=== PATIENT | male | born 1965 | race Caucasian/White ===

== ENCOUNTER 2018-01-25 10:14 | Inpatient (IN) | payer BC, OTHER ==
[2018-01-25 11:01] LABS: Hematocrit 42 % (42-52); Hemoglobin 14.2 g/dl (14.0-18.0); Mean Corpuscular HGB Conc 34 g/dl (31-36); Mean Corpuscular Hemoglobin 34 pg (27-31); Mean Corpuscular Volume 101 fL (80-94); Mean Platelet Volume 7.9 um3 (7.4-10.4); Platelet Count 121 10^3/ul (150-450); Red Blood Count 4.14 10^6/ul (4.0-5.4); Red Cell Distribution Width 15 % (10.5-15); White Blood Count 5.2 10^3/ul (3.5-10.8)
[2018-01-25 11:06] LABS: ABS Basophils 0 10^3/ul (0-0.2); ABS Eosinophils 0 10^3/ul (0-0.6); ABS Lymphocytes 0.8 10^3/ul (1.0-4.8); ABS Monocytes 0.7 10^3/ul (0-0.8); ABS Neutrophils 3.4 10^3/ul (1.5-7.7); ABS Nucleated RBC 0 10^3/ul; Eosinophil % 0.7 % (0-6); Nucleated Red Blood Cells % 0
[2018-01-25 11:09] LABS: INR 0.92 (0.77-1.02)
[2018-01-25 11:13] LABS: EGFR Non-African American 78.5 (>60)
--- NOTE | 2018-01-25 11:46 | RAD ---
HISTORY: Right facial trauma COMPARISONS: None TECHNIQUE: Multiple contiguous axial CT scans were obtained of the face without intravenous contrast, with coronal and sagittal multiplanar reformations. FINDINGS: BONES: There is pneumocephalus, with apparent dehiscence of the tegmen tympani on the left and fluid within the left mastoid air cells, suggestive of an occult, nondisplaced, left temporal bone fracture involving the mastoid air cells. The orbital rims are intact. These are metastatic arches are intact. No other fracture is noted. ORBITS: There is preorbital soft tissue swelling on the right. There is no post septal or intraconal extension. The globes are round. PARANASAL SINUSES: There is mucosal thickening of the maxillary sinuses and ethmoid air cells. There is an air-fluid level within the right maxillary sinus BRAIN AND SOFT TISSUE: As noted above, there is pneumocephalus of the left middle cranial fossa. There is associated hemorrhage of the left middle fossa as described with CT of the head OTHER: None. IMPRESSION: 1. THERE IS PNEUMOCEPHALUS OF THE LEFT MIDDLE CRANIAL FOSSA, WHICH IS LIKELY SECONDARY TO AN OCCULT NONDISPLACED LEFT TEMPORAL BONE FRACTURE INVOLVING THE MASTOID AIR CELLS. THERE IS ASSOCIATED SMALL AMOUNT OF FLUID WITHIN THE MASTOID AIR CELLS WITH DEHISCENCE OF THE TEGMEN TYMPANI ON THE LEFT. 2. THERE IS PREORBITAL SOFT TISSUE SWELLING ON THE RIGHT.
--- NOTE | 2018-01-25 11:49 | RAD ---
INDICATION: Head injury. COMPARISON: Correlation is made with a prior MRI of the brain from August 18, 2005. TECHNIQUE: Contiguous axial sections of the brain were obtained from the skull base to the vertex without contrast. FINDINGS: There is focal soft tissue swelling and possibly hematoma anterior to the right orbit. There is a small extra-axial area of hemorrhage adjacent to the left frontal lobe measuring up to 4 mm in thickness consistent with a small subdural hematoma. No mass effect is seen. In addition there is a focal ill-defined area of increased density in the posterior left temporal lobe adjacent to the mastoid air cells most consistent with a small intraparenchymal hemorrhage. In addition there is a small amount of air present adjacent to this area of hemorrhage in the subdural space suspicious for an underlying skull base fracture of the left temporal bone. No other focal abnormalities or mass effect are seen. No fracture is seen. There is mild mucosal thickening within the right maxillary sinus and within the ethmoid air cells. The mastoid air cells appear clear. The results of this exam were discussed with the referring clinician. IMPRESSION: 1. SMALL SUBDURAL HEMATOMA ADJACENT TO THE LEFT FRONTAL LOBE. 2. SMALL AREA OF PARENCHYMAL HEMORRHAGE IN THE POSTERIOR LEFT TEMPORAL LOBE. 3. PNEUMOCEPHALUS SUSPICIOUS FOR A LEFT TEMPORAL BONE SKULL BASE FRACTURE.
[2018-01-25] MEDS ORDERED: LORazepam INJ* 2 MG/ML 1 ML VIAL ONE (13:16)
[2018-01-25] MEDS ORDERED: Propofol* 200 ML ONE (13:30)
[2018-01-25] MEDS ORDERED: LORazepam INJ* 2 MG/ML 1 ML VIAL IV ONE (13:39)
[2018-01-25] MEDS ORDERED: Fosphenytoin(*) 1,000 MG in NS 0.9% 50 ML* 50 ML IVPB ONE (13:40)
[2018-01-25] MEDS ORDERED: Etomidate* 2 MG/ML 10 ML VIAL IV ONE (13:40)
[2018-01-25] MEDS ORDERED: Propofol* 500 MG/50 ML BTL IV SCH (14:00)
[2018-01-25] MEDS ORDERED: Thiamine IV* 100 MG, Folic Acid IV* 1 MG, Multiple Vitamin IV ADULT* 10 ML in NS 0.9% 1... IV ONE (14:20)
--- NOTE | 2018-01-25 14:24 | RAD ---
HISTORY: Seizure, status post intubation COMPARISONS: January 25, 2018 at 11:20 AM TECHNIQUE: Multiple contiguous axial CT scans were obtained of the head without intravenous contrast. FINDINGS: HEMORRHAGE/INFARCT: Again noted is a parenchymal hematoma of the left temporal lobe best seen on axial image 12. This measures approximately 3.2 x 2.9 cm transversely. There has been evolutionary change compared to the 11:20 AM examination, but is essentially stable in size. Again noted is a small left frontal subdural in caliber. This is stable. Elsewhere, there is no hemorrhage or acute infarct. MASSES/SHIFT: There is no mass or shift. EXTRA-AXIAL SPACES: As noted above, there is a small left frontal subdural hematoma, similar in size to the 11:20 AM examination, measuring up to 0.5 cm in depth. There is persistent pneumocephalus within the left middle cranial fossa. SULCI AND VENTRICLES: The sulci and ventricles are normal in size and position for the patient's stated age. CEREBRUM: As noted above, there is a left temporal parenchymal hematoma. BRAINSTEM: There are no focal parenchymal abnormalities. CEREBELLUM: There are no focal parenchymal abnormalities. VESSELS: The vessels are grossly normal. PARANASAL SINUSES: There is mucosal thickening of the right maxillary sinus and left maxillary sinus and ethmoid air cells on the left. There is a left mastoid effusion. ORBITS: Again noted is preorbital soft tissue swelling on the right. BONES AND SOFT TISSUE: There is no displaced fracture, though the presence of pneumocephalus within the middle cranial fossa likely indicates an occult, nondisplaced fracture through the temporal bone. OTHER: None IMPRESSION: 1. AGAIN NOTED IS A LEFT TEMPORAL PARENCHYMAL HEMATOMA, ESSENTIALLY STABLE IN SIZE COMPARED TO THE 11TH 20 A.M. EXAMINATION. 2. AGAIN NOTED IS A SMALL LEFT FRONTAL SUBDURAL HEMATOMA, ALSO STABLE. 3. AGAIN NOTED IS PNEUMOCEPHALUS WITHIN THE LEFT MIDDLE CRANIAL FOSSA, WITH A LEFT MASTOID EFFUSION, LIKELY INDICATING THE PRESENCE OF A RADIOGRAPHICALLY OCCULT FRACTURE THROUGH THE LEFT TEMPORAL BONE. 4. THERE IS PERSISTENT PREORBITAL SOFT TISSUE SWELLING ON THE RIGHT..
--- NOTE | 2018-01-25 14:33 | RAD ---
INDICATION: Trauma. COMPARISON: There are no prior studies available for comparison. TECHNIQUE: Contiguous axial sections were obtained from the skull base through the T2 vertebra. Images were reconstructed in the sagittal and coronal planes. FINDINGS: There is a cervical scoliosis convex toward the right side. There is mild retrolisthesis of C5 relative to C6 of approximately 2 mm which appears to be degenerative in origin. No fracture is seen. The patient is status post intubation. At the C2-C3 level there is posterior uncinate process spurring and hypertrophic changes within the left facet joint. No significant spinal canal narrowing is present. There is moderate neural foraminal narrowing on the left side. At the C3-C4 level there is mild posterior uncinate process spurring. No spinal canal narrowing is present. There is mild neural foraminal narrowing on the left side. At the C4-C5 level there are hypertrophic changes within the facet joints. No significant spinal canal narrowing is present. There is mild to moderate bilateral neural foraminal narrowing. At the C5-C6 level there is mild posterior uncinate process spurring and hypertrophic changes within the facet joints. There is mild spinal canal narrowing and mild to moderate bilateral neural foraminal narrowing. At the C6-C7 level there is mild posterior uncinate process spurring. No significant spinal canal narrowing is present. There is mild to moderate bilateral neural foraminal narrowing. IMPRESSION: 1. NO EVIDENCE FOR FRACTURE. 2. MODERATE CERVICAL SPONDYLOSIS.
[2018-01-25 15:24] LABS: Urine Appearance Clear; Urine Blood 2+ (Negative); Urine Color Yellow; Urine Ketones 1+ (Negative); Urine Protein 2+(100 mg/dL) (Negative); Urine Specific Gravity 1.016 (1.010-1.030); Urine Urobilinogen Negative (Negative)
[2018-01-25] MEDS ORDERED: Propofol* 100 ML IV SCH (15:41)
[2018-01-25] MEDS ORDERED: levETIRAcetam IV* 1,000 MG in NS 0.9% 100 ML* 100 ML IVPB ONE (16:30)
[2018-01-25] MEDS ORDERED: NS 0.9% 1000 ML* 1,000 ML IV ONE (16:42)
--- NOTE | 2018-01-25 16:45 | ED ---
Emery Torres Thomas, scribed for Donavon Murray MD on 01/25/18 at 1027 . Complex/Multi-Sys Presentation - HPI Summary HPI Summary: The patient is a 52 year old male who was at the store paying at the [employer] when he suddenly fell and seized. When the ambulance got there, the patient was able to say his name, say that he has a prior OR, and that he has a history of seizures but his last seizure was long ago. The patient was confused when interacting with EMS. In the ambulance, the patient had two more generalized tonic-clonic seizures that were witnessed in the ambulance. EMS gave the patient 5 mg Versed. LEVEL 5 CAVEAT: HPI limited by postictal patient - History Of Current Complaint Time Seen by Provider: 01/25/18 10:18 Hx Obtained From: EMS Hx From Patient Unobtainable Due To: Other - patient is postictal Onset/Duration: Still Present Timing: Constant Severity Initially: Moderate Location: Negative Alleviating Factor(s): Patient was given 5 mg of Versed Associated Signs And Symptoms: Positive: Other - Seizure Related History: Other - History of seizure, OR - Allergies/Home Medications Allergies/Adverse Reactions: Allergies Allergy/AdvReac Type Severity Reaction Status Date / Time No Known Allergies Allergy Verified 01/25/18 10:48 Home Medications: Home Medications NK [No Home Medications Reported] 01/25/18 [History Confirmed 01/25/18] PMH/Surg Hx/FS Hx/Imm Hx Cardiovascular History: Reports: Hx Myocardial Infarction Neurological History: Reports: Hx Seizures - Surgical History Surgery Procedure, Year, and Place: Unknown: Patient is a level 5 caveat due to postictal patient - Family History Known Family History: Positive: Unknown - Patient is a level 5 caveat due to postictal patient - Additional Comments History Additional Comments: Unknown: Patient is a level 5 caveat due to postictal patient Review of Systems Neurological: Other - Seizure All Other Systems Reviewed And Are Negative: No - Comments Additional Review of Systems Comments: LEVEL 5 CAVEAT: ROS limited by postictal patient Physical Exam - Summary Physical Exam Summary: General: He is thrashing and moves all extremities. Skin: The skin is diaphoretic. HEENT: The head is normocephalic. The pupils are 3-4 mm and reactive. He has a right supraorbital hematoma. The conjunctivae are clear and without drainage. Nares are patent and without drainage. Mouth reveals moist mucous membranes and the throat is without erythema and exudate. The external ears are intact. The ear canals are patent and without drainage. The tympanic membranes are intact. Neck: the neck is supple with full range of motion and non-tender. There are no carotid bruits. There is no neck vein distension. Respiratory: Chest is non-tender. Lungs are clear to auscultation and breath sounds are symmetrical and equal. Cardiovascular: Heart is regular rate and rhythm. There is no murmur or rub auscultated. There is no peripheral edema and pulses are symmetrical and equal. Abdomen: The abdomen is soft and non-tender. There are normal bowel sounds heard in all four quadrants and there is no organomegaly palpated. Musculoskeletal: He moves all extremities. There is good capillary refill. There is no peripheral edema or calf tenderness elicited. Neurological: He is thrashing and moves all extremities. LEVEL 5 CAVEAT: physical exam limited by postictal patient Triage Information Reviewed: Yes Vital Signs On Initial Exam: Initial Vitals Temp Pulse Resp BP Pulse Ox 97.9 F 100 28 162/95 100 01/25/18 10:20 01/25/18 10:20 01/25/18 10:20 01/25/18 10:20 01/25/18 10:20 Vital Signs Reviewed: Yes Procedures - Intubation Intubation Method: orotracheal Tube Size (cm): 8.0 Intubation Complications: no complications - Patient was intubated using etomidate and propofol Progress/Xray Impression: intubated with etomidate 20 mgs IV Diagnostics - Vital Signs Vital Signs Temp Pulse Resp BP Pulse Ox 01/25/18 15:43 84 20 99 01/25/18 15:40 80 13 93/62 98 01/25/18 15:35 80 14 98/63 98 01/25/18 15:30 82 14 97/64 96 01/25/18 15:25 81 12 90/58 95 01/25/18 15:20 82 15 90/58 96 01/25/18 15:15 86 92/63 97 01/25/18 15:10 85 98/64 94 01/25/18 15:05 85 101/65 95 01/25/18 15:00 86 100/65 95 01/25/18 14:55 87 95/59 92 04/13/18 14:50 88 91/59 98 01/25/18 14:45 91 121/64 96 01/25/18 14:40 91 110/76 95 01/25/18 14:35 91 114/78 97 01/25/18 14:30 73 117/76 94 01/25/18 14:27 14 01/25/18 14:25 92 16 79/60 95 01/25/18 14:21 95 18 86/52 94 01/25/18 14:15 113/71 01/25/18 14:13 101 17 96 01/25/18 14:10 139/89 01/25/18 13:57 103 19 96 01/25/18 13:55 108 21 129/74 97 01/25/18 13:53 108 23 146/125 97 01/25/18 13:45 117 25 167/99 98 01/25/18 13:35 119 28 181/168 99 01/25/18 13:30 110 17 183/119 97 01/25/18 13:29 78 22 163/149 98 01/25/18 13:00 83 17 134/95 95 01/25/18 12:30 74 14 134/86 96 01/25/18 12:00 86 15 138/84 100 01/25/18 11:30 85 16 128/76 100 01/25/18 11:22 120/81 01/25/18 11:02 114/69 01/25/18 11:01 100 01/25/18 11:00 91 20 100 01/25/18 10:51 94 19 100 01/25/18 10:20 97.9 F 100 28 162/95 100 - Laboratory Lab Results: Lab Results 01/25/18 01/25/18 01/25/18 Range/Units 10:44 10:44 10:44 WBC 5.2 (3.5-10.8) 10^3/ul RBC 4.14 (4.0-5.4) 10^6/ul Hgb 14.2 (14.0-18.0) g/dl Hct 42 (42-52) % MCV 101 H (80-94) fL MCH 34 H (27-31) pg MCHC 34 (31-36) g/dl RDW 15 (10.5-15) % Plt Count 121 L (150-450) 10^3/ul MPV 7.9 (7.4-10.4) um3 Neut % (Auto) 68.5 (38-83) % Lymph % (Auto) 16.0 L (25-47) % Clinch % (Auto) 14.0 H (0-7) % Eos % (Auto) 0.7 (0-6) % Baso % (Auto) 0.8 (0-2) % Absolute Neuts (auto) 3.4 (1.5-7.7) 10^3/ul Absolute Lymphs (auto) 0.8 L (1.0-4.8) 10^3/ul Absolute Monos (auto) 0.7 (0-0.8) 10^3/ul Absolute Eos (auto) 0 (0-0.6) 10^3/ul Absolute Basos (auto) 0 (0-0.2) 10^3/ul Absolute Nucleated RBC 0 10^3/ul Nucleated RBC % 0 INR (Anticoag Therapy) 0.92 (0.77-1.02) Sodium 134 L (139-145) mmol/L Potassium 3.4 L (3.5-5.0) mmol/L Chloride 96 L (101-111) mmol/L Carbon Dioxide 14 L* (22-32) mmol/L Anion Gap 24 H (2-11) mmol/L BUN 13 (6-24) mg/dL Creatinine 1.00 (0.67-1.17) mg/dL Est GFR ( Amer) 100.9 (>60) Est GFR (Non-Af Amer) 78.5 (>60) BUN/Creatinine Ratio 13.0 (8-20) Glucose 203 H (70-100) mg/dL Lactic Acid (0.5-2.0) mmol/L Calcium 9.9 (8.6-10.3) mg/dL Magnesium 2.0 (1.9-2.7) mg/dL Total Bilirubin 1.10 H (0.2-1.0) mg/dL AST 39 (13-39) U/L ALT 31 (7-52) U/L Alkaline Phosphatase 59 (34-104) U/L Total Protein 7.3 (6.4-8.9) g/dL Albumin 4.4 (3.2-5.2) g/dL Globulin 2.9 (2-4) g/dL Albumin/Globulin Ratio 1.5 (1-3) Urine Color Urine Appearance Urine pH (5-9) Ur Specific [place] (1.010-1.030) Urine Protein (Negative) Urine Ketones (Negative) Urine Blood (Negative) Urine Nitrate (Negative) Urine Bilirubin (Negative) Urine Urobilinogen (Negative) Ur Leukocyte Esterase (Negative) Urine WBC (Auto) (Absent) Urine RBC (Auto) (Absent) Ur Squamous Epith Cells (Absent) Urine Bacteria (Absent) Hyaline Casts (Absent) Urine Glucose (Negative) Urine Opiates Screen (None Detect) Ur Barbiturates Screen (None Detect) Phenytoin < 2.5 L (10-20) mcg/mL Valproic Acid < 13.0 L (50-100) mcg/mL Carbamazepine < 2.0 L (4.0-12.0) mcg/mL Ur Phencyclidine Scrn (None Detect) Ur Amphetamines Screen (None Detect) Phenobarbital < 5.0 L (17-34) mcg/mL U Benzodiazepines Scrn (None Detect) Urine Cocaine Screen (None Detect) U Cannabinoids Screen (None Detect) Serum Alcohol < 10 (<10) mg/dL 01/25/18 01/25/18 01/25/18 Range/Units 10:44 15:00 15:00 WBC (3.5-10.8) 10^3/ul RBC (4.0-5.4) 10^6/ul Hgb (14.0-18.0) g/dl Hct (42-52) % MCV (80-94) fL MCH (27-31) pg MCHC (31-36) g/dl RDW (10.5-15) % Plt Count (150-450) 10^3/ul MPV (7.4-10.4) um3 Neut % (Auto) (38-83) % Lymph % (Auto) (25-47) % Clinch % (Auto) (0-7) % Eos % (Auto) (0-6) % Baso % (Auto) (0-2) % Absolute Neuts (auto) (1.5-7.7) 10^3/ul Absolute Lymphs (auto) (1.0-4.8) 10^3/ul Absolute Monos (auto) (0-0.8) 10^3/ul Absolute Eos (auto) (0-0.6) 10^3/ul Absolute Basos (auto) (0-0.2) 10^3/ul Absolute Nucleated RBC 10^3/ul Nucleated RBC % INR (Anticoag Therapy) (0.77-1.02) Sodium (139-145) mmol/L Potassium (3.5-5.0) mmol/L Chloride (101-111) mmol/L Carbon Dioxide (22-32) mmol/L Anion Gap (2-11) mmol/L BUN (6-24) mg/dL Creatinine (0.67-1.17) mg/dL Est GFR ( Amer) (>60) Est GFR (Non-Af Amer) (>60) BUN/Creatinine Ratio (8-20) Glucose (70-100) mg/dL Lactic Acid 14.0 H* (0.5-2.0) mmol/L Calcium (8.6-10.3) mg/dL Magnesium (1.9-2.7) mg/dL Total Bilirubin (0.2-1.0) mg/dL AST (13-39) U/L ALT (7-52) U/L Alkaline Phosphatase (34-104) U/L Total Protein (6.4-8.9) g/dL Albumin (3.2-5.2) g/dL Globulin (2-4) g/dL Albumin/Globulin Ratio (1-3) Urine Color Yellow Urine Appearance Clear Urine pH 5.0 (5-9) Ur Specific [place] 1.016 (1.010-1.030) Urine Protein 2+(100 mg/dl) A (Negative) Urine Ketones 1+ A (Negative) Urine Blood 2+ A (Negative) Urine Nitrate Negative (Negative) Urine Bilirubin Negative (Negative) Urine Urobilinogen Negative (Negative) Ur Leukocyte Esterase Negative (Negative) Urine WBC (Auto) Trace(0-5/hpf) (Absent) Urine RBC (Auto) Trace(0-2/hpf) (Absent) Ur Squamous Epith Cells Present A (Absent) Urine Bacteria Absent (Absent) Hyaline Casts Present A (Absent) Urine Glucose Negative (Negative) Urine Opiates Screen None detected (None Detect) Ur Barbiturates Screen None detected (None Detect) Phenytoin (10-20) mcg/mL Valproic Acid (50-100) mcg/mL Carbamazepine (4.0-12.0) mcg/mL Ur Phencyclidine Scrn None detected (None Detect) Ur Amphetamines Screen None detected (None Detect) Phenobarbital (17-34) mcg/mL U Benzodiazepines Scrn Presumptive positive A (None Detect) Urine Cocaine Screen None detected (None Detect) U Cannabinoids Screen None detected (None Detect) Serum Alcohol (<10) mg/dL Result Diagrams: 01/25/18 10:44 01/25/18 10:44 Lab Statement: Any lab studies that have been ordered have been reviewed, and results considered in the medical decision making process. - CT CT Maxillofacial CT Interpretation: Positive (See Comments) - IMPRESSION: 1. THERE IS PNEUMOCEPHALUS OF THE LEFT MIDDLE CRANIAL FOSSA, WHICH IS LIKELY SECONDARY TO AN OCCULT NONDISPLACED LEFT TEMPORAL BONE FRACTURE INVOLVING THE MASTOID AIR CELLS. THERE IS ASSOCIATED SMALL AMOUNT OF FLUID WITHIN THE MASTOID AIR CELLS WITH DEHISCENCE OF THE TEGMEN TYMPANI ON THE LEFT. 2. THERE IS PREORBITAL SOFT TISSUE SWELLING ON THE RIGHT. Dr. Murray has reviewed this report. CT Interpretation Completed By: Radiologist CT Brain W/O 10:21 CT Interpretation: Positive (See Comments) - IMPRESSION: 1. SMALL SUBDURAL HEMATOMA ADJACENT TO THE LEFT FRONTAL LOBE. 2. SMALL AREA OF PARENCHYMAL HEMORRHAGE IN THE POSTERIOR LEFT TEMPORAL LOBE. 3. PNEUMOCEPHALUS SUSPICIOUS FOR A LEFT TEMPORAL BONE SKULL BASE FRACTURE. Dr. Murray has reviewed this report. CT Interpretation Completed By: Radiologist CT Brain W/O 13:08 CT Interpretation: Positive (See Comments) - IMPRESSION: 1. AGAIN NOTED IS A LEFT TEMPORAL PARENCHYMAL HEMATOMA, ESSENTIALLY STABLE IN SIZE COMPARED TO THE 11TH 20 A.M. EXAMINATION. 2. AGAIN NOTED IS A SMALL LEFT FRONTAL SUBDURAL HEMATOMA, ALSO STABLE. 3. AGAIN NOTED IS PNEUMOCEPHALUS WITHIN THE LEFT MIDDLE CRANIAL FOSSA, WITH A LEFT MASTOID EFFUSION, LIKELY INDICATING THE PRESENCE OF A RADIOGRAPHICALLY OCCULT FRACTURE THROUGH THE LEFT TEMPORAL BONE. 4. THERE IS PERSISTENT PREORBITAL SOFT TISSUE SWELLING ON THE RIGHT.. Dr. Murray has reviewed this report. CT Interpretation Completed By: Radiologist CT C-Spine CT Interpretation: No Acute Changes - IMPRESSION: 1. NO EVIDENCE FOR FRACTURE. 2. MODERATE CERVICAL SPONDYLOSIS. Dr. Murray has reviewed this report. CT Interpretation Completed By: Radiologist - EKG 10:31 Cardiac Rate: Tachycardia EKG Rhythm: Sinus Tachycardia - at 103 BPM EKG Interpretation: Nonspecific changes. Re-Evaluation - Re-Evaluation First Eval Comment: When the patient was being evaluated for admission by Dr. Davis, his mental status became worse and he became confused. He was sometimes speaking in word salad and at other times he had expressive aphasia. A CT was ordered, and prior to going to CT the patient had a generalized tonic-clonic seizure. 2 mg of Ativan was ordered. The patient had a second generalized tonic-clonic seizure while we were pushing the Ativan. The patient was intubated using etomidate and Propofol. Complex Multi-Symp Course/Dx Course Of Treatment: Mr. Daniel returned from the second CT slightly hypotensive and the propofol was cut back. His temporal lobe contusion looked a little worse but his subdural was unchanged. Dr. Triplett recommended continuing as planned and Dr. Estevez was consulted also. He came and saw the patient and performed an EEG whic showed no seizure activity at this time. [facility] is being [facility] at [facility]. - Diagnoses Provider Diagnoses: Status epilepticus, Intracranial hemorrhage following injury - Physician Notifications Discussed Care Of Patient With: Nilesh Instructed by Provider To: Other - Dr. Galloway, neurosurgery, agrees to consult the patient and thought that the patient should be admitted here at [facility]. Dr. Davis, hospitalist, came to evaluate the patient. Dr. Estevez, neurology, recommends Acyclovir. - Critical Care Time Critical Care Time: 30-74 min Discharge - Sign-Out/Discharge Documenting (check all that apply): Discharge - Discharge Plan Condition: Stable Disposition: ADMITTED TO [facility] Referrals: No Primary Care Phys,NOPCP [Primary Care Provider] - - Billing Disposition and Condition Condition: STABLE Disposition: HOSP-[facility] The documentation as recorded by the Emery burch Thomas accurately reflects the service I personally performed and the decisions made by me, Donavon Murray MD.
[2018-01-25] MEDS: NS 0.9% IVPB SCH (16:58)
[2018-01-25] MEDS: ACYCLOVIR IVPB SCH (16:58)
[2018-01-25] MEDS ORDERED: Ondansetron INJ* 2 MG/ML VIAL IV PRN (17:09)
--- NOTE | 2018-01-25 17:14 | HP ---
H&P (Free Text) History and Physical: CRITICAL CARE MEDICINE DATE: 01/25/18 TIME: 1615 PRIMARY CARE PROVIDER: unknown REFERRING PROVIDER: Trevor REASON/CHIEF COMPLAINT: status epilepticus HISTORY OF PRESENT ILLNESS: 52 M with little known history as he is from [place], lead to believe he is here visiting a friend, when he had acute on set seizure activity, witnessed while paying at a store counter. He had seizure like activity and fell forward striking the counter with his right sided face and then further seizure. EMS arrived and pt still confused and had 4 further episodes in route. Received 5mg versed. Per nursing he was then more talkative in ED, although probably not to baseline. Explained he had history of seizure but med free for many years. H/o [place] too. Had Head CT revealing LEFT SDH and temp hematoma/contusion. He was being admitted and had 2 more seizure events. Underwent intubation and started on propofol with repeat head CT - bleeds in evolution but not dramatically changed. loaded with dilantin. Neuro able to read EEG which I was told was nml. Nsgy ok keeping pt here with close monitoring but no interventions at this time. REVIEW OF SYSTEMS: As per HPI. PAST MEDICAL HISTORY: As per HPI. MEDICATIONS: Reviewed. unconfirmed if any. ALLERGIES: Reviewed. None. SOCIAL HISTORY: Reviewed. unclear sec to acuity. FAMILY HISTORY: Noncontributory at present. PHYSICAL EXAM: large orbital ecchymosis on right with pronounced edema. Vital Signs: Reviewed. Hr 80s. SBP ~100. vol ventilation. Neurologic: awakening as prop held for my exam. BURCH. able to protrude tongue. asked if pain and he indicated affirmative. moving ext on command but still degree of encephalopathy HEENT: pupils eq and reactive. ett in place Cardiovascular: distant, S1 S2 Respiratory: clear bl Abdomen: obese, soft nt Extremities: warm Access: piv LABS: Reviewed. IMAGING: Reviewed. MEDICATIONS: Reviewed. ASSESSMENT: 52 M Status epilepticus Left SDH Left temporal hematoma/contusion Left temporal bone fx Acute resp failure sec to above Mild hyponatremia ?h/o etoh - level neg PLAN: Neurologic: he is at least awake enough to attempt to follow commands. placed back on prop now and will need close neurochecks every hour. no surgical needs yet but nsgy will consult. Needs CT scan tonight and in am given his dynamic. No seizure at present and loading with keppra and keeping 750mg bid for now. EEG resource limited at the moment and need clinical close exams to follow. Neuro to follow up. hob 30degrees. Euthermia. close bp monitoring. propofol for now. prn low dose narcs but try to avoid. only benzos if seizure. Cardiovascular: perfusing. can utilize some ivf for now given vol distribution post seizures and intubation. NS. check trop given history and will need to sort out if on prior meds. keep sbp >100, <140 Respiratory: can maintain with vol control currently. check cxr Gastrointestinal: ogt. sup. hold on feeds at the moment. Renal/Metabolic: Na a touch low and given his vol status Na should rise with NS alone. If any neuro decline issues would consider 3%. LA post seizure should clear and check labs later to ensure. Infectious Disease: no infective burden but covered initially with acyclovir; however eeg not indicative either, and can clinically follow. no fever. benign wbc. Hematology: no anticoag we know of. asa potential given h/o mi however. reserve plt. Endocrine: bg ok. Musculoskeletal: bedrest. seizure precautions. Psych/Social: social work consult to find family and if any medical history/ meds etc Supportive and preventative care as ordered. Vaccine: unknown at this time SUP: ppi VTE prophylaxis: scds Tony catheter given critical illness, monitoring needs for accurate assessment of HEIDI and KDIGO criteria for critically ill patients and to avoid potential harms of urinary retention, skin breakdown/ulcers. Restraints: Reviewed and required presently. Disposition: ICU Code Status: Full Critical Care Time: 50min D/w Neuro and Nsgy Lovely Early DO
--- NOTE | 2018-01-25 17:29 | RAD ---
Indication: Seizure. Post intubation. Comparison: No relevant prior exams available on the [facility] for comparison. Technique: Upright AP 1508 hours Report: Endotracheal tube tip 2.5 cm above the Victoria. Minimal bilateral subsegmental atelectasis. Negative for pleural effusion or pneumothorax. Upper normal heart size. Unremarkable central pulmonary vasculature. IMPRESSION: Endotracheal tube tip 2.5 cm above the Victoria. Mild bilateral subsegmental atelectasis.
[2018-01-25] MEDS ORDERED: NS 0.9% 1000 ML* 1,000 ML IV SCH (17:45)
[2018-01-25] MEDS ORDERED: Propofol* 100 ML ONE (17:50)
[2018-01-25] MEDS: Propofol* 100 ML IV SCH ×2 (17:51→22:18)
[2018-01-25] MEDS ORDERED: Lansoprazole SOLUTAB* 30 MG G TUBE SCH (18:00)
[2018-01-25] MEDS: LORazepam INJ* 2 MG/ML 1 ML VIAL IV PUSH PRN (19:43)
[2018-01-25] MEDS: fentaNYL* 50 MCG/ML 2 ML VIAL (100 MCG VIAL) IV SLOW PU PRN (19:43)
--- NOTE | 2018-01-25 20:49 | CONS ---
CONSULTATION NOTE: DATE OF CONSULT: 01/25/18 PATIENT OF: Dr. Ruiz Murray. HISTORY OF PRESENT ILLNESS: This is a 52-year-old man, who is at the store today, paying the cashier ticket selling where he apparently stiffened first and then fell. This was generalized. The patient was able to say his name and he had had a prior heart attack and had seizures, but his last seizure was long ago. He was then somewhat confused. The patient had 2 more seizures in the ambulance and received 5 mg of Versed. The patient developed some worsening confusion when the patient was in the ER initially. At first, he was able to speak and make sense, although was not felt to be completely of clear mental status, but he developed some word salad and expressive aphasia. Repeat CT scan was ordered and prior to going to the CT scan, the patient had a generalized tonic-clonic seizure and 2 mg of Ativan was given and while the patient was getting Ativan, he had another brief tonic-clonic seizure. The patient was intubated and given propofol. He was slightly hypotensive and the propofol was cut back. The patient was able to move all extremities prior to the propofol. PAST SURGICAL HISTORY: He has known surgeries. MEDICATIONS: There are no known medications. ALLERGIES: There are no known allergies. SOCIAL HISTORY: He does not know of any substance abuse, but history is limited. He formerly lived in [place] and was a patient of Dr. Smith. Checked our chart, it must have been before records were computerized, since I do not see anything on him in Dr. Smith's computerized records. REVIEW OF SYSTEMS: Unobtainable. PHYSICAL EXAM: Temperature 97.9, pulse 84, respirations 20, blood pressure 93/ 62. He was on propofol when I saw him and intubated with significant bruise over his right eye. Pupils were small. He had no movements other than when I touched his right eye to try to open it gently, he brought up his left hand in a semi- purposeful movement. Reflexes were mute. Toes were mute. Chest: Clear. Cardiovascular: Regular rate and rhythm. Abdomen: Soft. DIAGNOSTIC STUDIES/LAB DATA: His CT scan was reviewed and he had a left temporal hematoma stable in size from earlier today, a small left frontal subdural hematoma, also he has pneumocephalus in the left middle cranial fossa, likely indicating an occult fracture of the left temporal bone. Labs include normal CBC other than MCV of 101. INR of 0.92. CMP: Sodium of 134, potassium 3.4, chloride of 14, anion gap 24, lactic acid 14, glucose 203. Total bili 1.1, otherwise intact. Toxicology was negative other than for benzodiazepines, but he received all those in the ambulance. UA was negative other than 2+ protein. His EEG showed no epileptiform potentials or major asymmetries of background. This was while he was sedated and intubated on the propofol. IMPRESSION AND PLAN: It is possible that Donavon had seizures as a part of his longstanding seizure disorder, who fell and had sustained head trauma and then had further seizures on top of brandon. It is possible, perhaps less likely that the bleed occurred first and then caused the seizures. I think that it is less likely since it looks he sustained significant trauma from his fall and now that would put him at risk for intracranial bleeding, so I think that this may have been secondary to the seizures. I am not sure why the seizures are occurring at this point. His history is limited. Given the frequency of seizures and the hemorrhage in his left temporal area, I have recommended he go on acyclovir. I have called [place] epileptologist to find out if he has the option of remote long-term monitoring today since it is unclear whether how quickly he will wake up once the propofol is removed. The propofol was given and he was intubated, so that he can get repeat CT scan. Initially, Dr. Cooper had contacted somebody and told me that he had available remote long-term monitoring. He just called me back and said that it is actually not available and I had told Dr. Early that we had availability to monitor and his decision to keep the patient here based in part on that. Dr. Murray is in the process of recontacting him to see if this changes his game plan. For now, we are going to treat him with Keppra instead of Dilantin since he has had some bradycardia. Dr. Kaur is on for Neurology should the patient stay here and I will sign the patient out to her. Thank you for sharing his case. [id number]/[facility] #: [id number] [facility] CENTERMaximino
--- NOTE | 2018-01-25 21:31 | RAD ---
Indication: Status epilepticus. Intracranial hemorrhage. Comparison: January 25, 2018 CT 1410 hours Technique: Noncontrast CT vertex of skull through foramen magnum. Report: 3.2 cm AP by 2.5 cm transverse region of hyperdense intra-axial hematoma at the LEFT temporal lobe with adjacent minimal extra-axial subdural and subarachnoid hematoma and pneumocephalus without significant interval change compared with the 14th 10 hours exam of the same date. Mild overlying sulcal effacement with underlying involutional change mitigating against more significant mass effect. Negative for midline shift or downward herniation. Patent basal cisterns. Negative for significant ventricular compression or hydrocephalus. Negative for porter matter white matter obscuration. Negative for calvarial or skull base fracture. Mucosal thickening at the visualized ethmoid and sphenoid sinuses. Clear mastoid air spaces. Persistent LEFT mastoid effusion. Significant infiltrative hematoma at the preseptal RIGHT orbit. No postseptal orbital hematoma evident. IMPRESSION: 1. No significant interval change in LEFT temporal lobe parenchymal hemorrhage and adjacent small volume of LEFT extra-axial hematoma and pneumocephalus. Only minimal associated mass effect. 2. Probable occult LEFT temporal bone fracture given the pneumocephalus and LEFT mastoid effusion. 3. No significant change in severe RIGHT preseptal orbital swelling/hematoma.
[2018-01-25] MEDS: Chlorhexidine MOUTHWASH 0.12%* 15 ML UDC TOPICAL SCH ×2 (21:44→22:23)
--- NOTE | 2018-01-25 22:15 | RAD ---
Indication: Orogastric tube placement. Comparison: 1707 hours January 25, 2018 Technique: Sitting AP chest 2110 hours Report: Endotracheal tube tip approximately 5.5 cm above the Victoria. Orogastric tube tip at the gastric fundus body junction approximating the greater curvature. Low lung volumes with mild subsegmental atelectasis. Grossly clear pleural spaces. Negative for pneumothorax. Cardiomegaly. Unremarkable central pulmonary vasculature and mediastinal contours. IMPRESSION: The endotracheal tube could be advanced approximate 1.5 cm. Orogastric tube tip at the gastric fundus body junction approximating the greater curvature.
[2018-01-25] MEDS: Lansoprazole susp Kit 3 MG/ML (30 MG = 10 ML) G TUBE SCH (22:19)
[2018-01-25] MEDS: Fosphenytoin(*) 100 MG/2 ML VIAL IV SLOW PU SCH (22:20)
[2018-01-25] MEDS: levETIRAcetam IV* 750 MG in NS 0.9% 100 ML* 100 ML IVPB SCH (22:20)
[2018-01-26] MEDS: NS 0.9% IVPB SCH ×2 (00:23→08:04)
[2018-01-26] MEDS: ACYCLOVIR IVPB SCH ×2 (00:23→08:04)
[2018-01-26] MEDS: Chlorhexidine MOUTHWASH 0.12%* 15 ML UDC TOPICAL SCH ×3 (00:23→10:25)
[2018-01-26] MEDS: Propofol* 100 ML IV SCH ×5 (00:23→09:55)
[2018-01-26] MEDS ORDERED: fentaNYL* 50 MCG/ML 2 ML VIAL (100 MCG VIAL) ONE (00:44)
--- NOTE | 2018-01-26 00:57 | CONS ---
CONSULTATION REPORT: DATE OF CONSULT: 01/25/18 HISTORY OF PRESENT ILLNESS: The patient is a 52-year-old gentleman with past medical history of seizures and IA who was referred through from [place]. The patient was reported to have a seizure when he was paying at the counter, had a fall and hit his head against the counter. The patient had several other seizure activities, was brought to the emergency room and CT scan of the brain revealed a small left subdural hematoma with left posterior temporal contusion and temporal pneumocephalus with the suspicion of a temporal fracture. The patient continued to have seizure activity, was treated with medication in the emergency room and was intubated. Repeat CT revealed evolution of the contusion without significant mass effect or midline shift. The patient was evaluated by Dr. Estevez in the emergency room and EEG was reported to be negative. The patient was admitted to ICU. No further history is available as there is no family available at this point. PAST MEDICAL HISTORY: As stated above. PAST SURGICAL HISTORY: Unknown. MEDICATIONS: Unknown. ALLERGIES: Unknown. SOCIAL HISTORY: Unknown. PHYSICAL EXAMINATION: The patient was examined in the intensive care unit. The patient is intubated and sedated with propofol. He opens his eyes to voice. He had ecchymosis on the right eye. His pupils are equal and reactive. Face symmetric. His gaze is conjugate. He follows simple commands. He moves all extremities spontaneously and he appears to be withdrawing to pain with all extremities. Deep tendon reflexes +1 bilaterally. No clonus, no Babinski. Pennington's negative. The patient is reported to have no tenderness at the cervical spine in the emergency room and is not in cervical collar. DIAGNOSTIC STUDIES/LAB DATA: The patient had a CT scan of the brain which revealed small left subdural hematoma with posterior temporal lobe contusion with pneumocephalus and possible temporal bone fracture. CT scan of the cervical spine did not reveal any evidence of fracture or subluxation. ASSESSMENT: The patient is a 52-year-old gentleman with history of seizures and myocardial infarction who was admitted to the hospital after reported seizures and a fall with CT scan findings consistent with a small left subdural hematoma and posterior temporal lobe contusion with pneumocephalus and possible temporal bone fracture. PLAN: The patient at this point is monitored closely in the intensive care unit. Repeat CT scan did not reveal any evidence of increase in the appearance of the contusion or any significant mass effect. There is no midline shift and the basal cisterns are preserved. The patient is on Keppra. We recommend frequent neuro checks. At this point, plan to apply Wakefield-J collar which we can remove if the patient is extubated and is more alert, otherwise I have requested to do an MRI of brain and the cervical spine. Monitor electrolytes. The patient received acyclovir per Dr. Estevez's recommendation because of his presentation with seizures and left temporal hemorrhage. We will recommend also thoracic and lumbar spine x-rays. We will keep him in bedrest with head top of bed 30 degrees for now. Seizure treatment per Neurology. Also consider ENT evaluation for temporal bone fracture and fluids in the mastoid cells. We will plan to repeat the CT scan of the brain in the morning. I appreciate ICU, Internal Medicine and Neurology care. Thank you for allowing us to participate in the care of this patient. Please do not hesitate to contact our office in case you have any further questions or concerns regarding the care of this patient. [id number]/[facility] #: [id number] BARRETT
--- NOTE | 2018-01-26 01:13 | EEG ---
ELECTROENCEPHALOGRAPHY: DATE OF STUDY: 01/25/18 - ROOM #ICU-2 PATIENT OF: Dr. Murray. CLINICAL PROBLEM: This is a 52-year-old man being evaluated for recurrent seizures today with some confusion as well. The patient has been intubated and put on propofol, has received Celebrex, Diprivan, Ativan, and Amidate. REPORT: With the patient intubated and on propofol, background cerebral activity consists of moderate amplitude diffuse admixed theta and alpha range frequencies without any major asymmetries of background. No epileptiform potentials are noted. There is some admixed beta range frequencies. CLINICAL IMPRESSION: This sedated EEG shows no major abnormalities. [id number]/[facility] #: [id number] [facility]
[2018-01-26] MEDS: fentaNYL* 50 MCG/ML 2 ML VIAL (100 MCG VIAL) IV SLOW PU PRN ×2 (04:19→07:52)
[2018-01-26 07:11] LABS: Hematocrit 35 % (42-52); Mean Corpuscular HGB Conc 35 g/dl (31-36); Mean Corpuscular Hemoglobin 34 pg (27-31); Mean Corpuscular Volume 99 fL (80-94); Mean Platelet Volume 7.5 um3 (7.4-10.4); Platelet Count 98 10^3/ul (150-450); Red Blood Count 3.48 10^6/ul (4.0-5.4); Red Cell Distribution Width 15 % (10.5-15)
[2018-01-26 07:13] LABS: INR 0.98 (0.77-1.02)
[2018-01-26 07:23] LABS: EGFR Non-African American 112.8 (>60)
[2018-01-26 07:38] LABS: ABS Basophils 0 10^3/ul (0-0.2); ABS Eosinophils 0 10^3/ul (0-0.6); ABS Monocytes 0.7 10^3/ul (0-0.8); ABS Neutrophils 3.2 10^3/ul (1.5-7.7); ABS Nucleated RBC 0 10^3/ul; Eosinophil % 0.7 % (0-6); Lymphocyte % 20.8 % (25-47); Nucleated Red Blood Cells % 0
[2018-01-26] MEDS: Acetaminophen ADULT LIQ* 650 MG/20.3 ML UDC PO PRN ×3 (07:53→22:56)
[2018-01-26] MEDS: Fosphenytoin(*) 100 MG/2 ML VIAL IV SLOW PU SCH ×2 (07:57→21:31)
--- NOTE | 2018-01-26 08:38 | RAD ---
INDICATION: Follow-up subdural hematoma COMPARISON: Most recent CT of the brain is dated January 25, 2018 TECHNIQUE: Contiguous axial sections of the brain were obtained from the skull base to the vertex without contrast. FINDINGS: Similar to prior CT of the brain motion artifact somewhat limits image quality. The ventricles, cisterns and sulci are within normal limits. There is no midline shift or intracranial herniation. Again seen at the posterior left temporal lobe is nodular hyperattenuating material with surrounding hypoattenuating parenchyma consistent with vasogenic edema. The area measures up to 2.7 x 4.1 cm in the axial plane, slightly increased from 2.5 x 3.2 cm on the previous CT of the brain. Although the area is larger the hyperattenuating component (i.e. the blood) appears similar. Again seen is extra-axial gas between the lateral margin of the temporal lobe and the temporal bone similar in appearance to the previous CT of the brain. At the right frontal bone there is a focus of cortical discontinuity, asymmetric from the contralateral side (axial image 17 of 36). The degree of mastoid air cell effusion on the left is similar in appearance to the previous CT of the brain. At the right junction between the clivus and mastoid air cells there is asymmetric cortical discontinuity (axial image 7 of 36). Again seen is moderate mucosal thickening of the right worse than left maxillary sinuses. There is mild mucosal thickening of the sphenoid sinuses as well as the bilateral ethmoid air cells. IMPRESSION: 1. Similar to the prior CT of the brain there is stable parenchymal bleed at the posterior left temporal lobe but with an enlarging area of surrounding vasogenic edema now measuring 2.7 x 4.1 cm in the axial plane increased from 2.5 x 3.2 cm. There is no CT evidence of midline shift or intracranial herniation. 2. The left-sided mastoid air cell effusion as well as extra-axial gas between the temporal lobe and the temporal bone are similar in appearance. 3. There appears to be cortical discontinuity at the right frontal bone as well as the junction of the right clivus and temporal bone which could be a depressed skull fracture and temporal bone fracture, respectively. Please correlate to external signs of trauma as well as the mechanism of injury.
[2018-01-26] MEDS: LORazepam INJ* 2 MG/ML 1 ML VIAL IV PUSH PRN (09:01)
[2018-01-26] MEDS ORDERED: Potassium Chloride LIQUID* 20 MEQ PACKET PO ONE (09:45)
[2018-01-26] MEDS ORDERED: Potassium Chloride LIQUID* 20 MEQ PACKET ONE (09:46)
[2018-01-26] MEDS: levETIRAcetam IV* 750 MG in NS 0.9% 100 ML* 100 ML IVPB SCH ×2 (09:49→22:08)
[2018-01-26] MEDS ORDERED: fentaNYL* 50 MCG/ML 2 ML VIAL (100 MCG VIAL) IV SLOW PU ONE (10:02)
[2018-01-26] MEDS: Lansoprazole susp Kit 3 MG/ML (30 MG = 10 ML) G TUBE SCH (10:26)
--- NOTE | 2018-01-26 10:45 | PN ---
Progress Note - Progress Note Date of Service: 01/26/18 Note: CRITICAL CARE MEDICINE DATE: 01/26/18 TIME: 1005 SUBJECTIVE: Patient seen and examined. PHYSICAL EXAM: orbital ecchymosis on right better Vital Signs: Reviewed. Hr 80s. SBP >100. cpap ventilation. Neurologic: awakening as prop held, but a little slow and agitated. fent given. following commands. HEENT: pupils eq and reactive. ett in place Cardiovascular: distant, S1 S2 Respiratory: clear bl Abdomen: obese, soft nt Extremities: warm Access: piv LABS: Reviewed. IMAGING: Reviewed. MEDICATIONS: Reviewed. ASSESSMENT: 52 M Status epilepticus Left SDH Left temporal hematoma/contusion Left temporal bone fx Acute resp failure sec to above Mild hyponatremia ?h/o etoh PLAN: Neurologic: CTs stable. nsgy and neuro have evaluated. No acute interventions. follow up aeds. seemingly all traumatic, but seizure trigger etiology? appreciate consulted f/u. will look to clear c-spine later post liberation. f/ u pain control needs. Cardiovascular: perfusing. bp ok. can be oiff fluids now. keep sbp >100, <140 Respiratory: cpap and liberate today. obs Gastrointestinal: f/u for po. Renal/Metabolic: Na at least not low. can give lasix if needing to drive up more but otherwise not an ailment at present. Infectious Disease: no infective burden. no abx. Hematology: counts ok. f/u with pt regarding any asa use etc Endocrine: bg ok. Musculoskeletal: oob later. pt. seizure precautions. Psych/Social: social work f/u Supportive and preventative care as ordered. Vaccine: unknown at this time SUP: ppi VTE prophylaxis: scds Tony catheter given critical illness, monitoring needs for accurate assessment of HEIDI and KDIGO criteria for critically ill patients and to avoid potential harms of urinary retention, skin breakdown/ulcers. Restraints: off today Disposition: ICU Code Status: Full Critical Care Time: 35min Lovely Early DO
--- NOTE | 2018-01-26 10:51 | PN ---
FOLLOWUP NOTE: DATE OF SERVICE: 01/26/18 HISTORY OF PRESENT ILLNESS: Mr. Daniel is a 52-year-old gentleman with reported history of seizures and myocardial infarction, on unknown antiepileptic medications, who was admitted after experiencing a seizure with head trauma. He was brought into hospital and continued to have seizures in ambulance and in the ER. In the ER he developed expressive aphasia, followed by further seizures. CT showed a subdural hematoma in the left frontal lobe and parenchymal hemorrhage in left temporal lobe, which appears to have progressed this morning. There is also question of a left temporal skull bone fracture. He was seen by Dr. Estevez in the emergency room, admitted by Dr. Early in the ICU and consulted by Dr. Dillard in Neurosurgery In regards to seizures, he was provided levetiracetam at 1000 mg and continued on 750 IV q.12 hours. He was provided fosphenytoin 1000 mg load followed by 150 mg IV b.i.d. starting this morning. He has received benzodiazepines and he was intubated and sedated on propofol. EEG was obtained yesterday after sedation and no ongoing epileptiform activity was noted. It is unclear what seizure medication he is on at baseline and in the emergency room he had levels drawn of phenytoin, valproic, carbamazepine, phenobarbital and the levels were reported below the lower limit. Pending are lamotrigine, levetiracetam and zonisamide levels. His tox screen was presumed positive for benzodiazepines. Dr. Estevez did start the patient on acyclovir playing devil's advocate of a bleed and seizure secondary to infection, as opposed to trauma from discussion. This morning, his propofol was lifted, and he was examined by Dr. Dillard who I spoke to and was leaving the ICU as I was coming in, and he was able to follow commands in all 4 limbs and was signaling that he wanted to be extubated. My exam was confounded by Ativan that was given after Dr. Dillard ' exam and just restarting propofol. Despite that, he was able to move all 4 limbs. PHYSICAL EXAMINATION: On examination this morning, his most recent temperature was 99.7, heart rate 99, respiratory rate 15, saturation 94%, blood pressure 128/95. He had a regular cardiac rhythm. His lungs are clear to auscultation. There was no peripheral edema. He had bruising over his right eye and he kept this closed. He did briefly open his left eye for me and I was briefly able to open both eyes, but then he resisted making it difficult to examine. Of note, he did have bowel sounds and his abdomen was soft and no response was made to suggest tenderness. I was unable to evaluate pupil response given patient keeping his eyes closed. He did briefly follow commands and move his left eye from left to right. His facial expression appeared symmetric, albeit he is intubated. His tone was good in all of his extremities. Each limb, he was able to move independently with very good antigravity strength in his arms with further purposeful movement in his lower extremities. He was able to wiggle toes on both sides and do withdrawal. His reflexes were 2+ and symmetric with flexor response of the toes. Further coordination, sensory and gait exam could not be performed. LABORATORY DATA/IMAGING STUDIES: His most recent CBC showed a normal white count with hemoglobin of 12, hematocrit 35 and platelets of 98. His sodium was 138, potassium 3.0 and the remainder of his electrolytes were normal. His lactic acid was elevated at 14 and came down to normal last evening. His calcium slightly low at 8.3. Liver function tests reported within normal limits. His urinalysis showed 2+ protein, 1+ ketone, 2+ blood and his tox screen showed presumed positive benzodiazepines. No detectable phenytoin, valproic, carbamazepine or phenobarbital and serum alcohol less than 10. All CTs were reviewed showing the evolving left temporal bleed and the left frontal subdural and possible left temporal skull bone fracture as well as consultations by Dr. Dillard, Dr. Estevez, and Dr. Early were reviewed and ER report by Dr. Murray. IMPRESSION: Mr. Daniel is a 52-year-old gentleman with a history of epilepsy , myocardial infarction, admitted after seizure with head trauma followed by repeat seizures requiring intubation, sedation on propofol with treatment with Keppra (levetiracetam) and fosphenytoin. We do not know what seizure medications he is on at baseline. The patient is currently intubated. Neurosurgery indicated they are comfortable with extubation. We await Dr. Early's input. His exam at this point is limited; however, he is clearly moving all limbs to command and no seizure activity has been noted. He did just receive Ativan and propofol prior to my examination. At this point, I would check a Dilantin level, albeit noting that it is non- trough in anticipation of extubation and cessation of propofol. For now, we will continue on current doses of levetiracetam and fosphenytoin. Hopefully, we will be able to get further information from the patient after extubation. In regards to the question of treatment with acyclovir, I think it is less likely there is indication for this. We will wait for extubation, but I will be discussing this with Dr. Early. TIME SPENT: Over 45 minutes was spent in care, reviewing records, discussing case with Neurosurgery, examination, and coordination of care. I will be re- rounding today and discussing case further with Dr. Early. As far as EEG is concerned, this morning he is able to move all limbs and it is not indicated. Further EEG will depend on clinical course. [id number]/[facility] #: [id number] MTDD
[2018-01-26] MEDS ORDERED: NS 0.9% 1000 ML* 1,000 ML IV SCH (11:01)
--- NOTE | 2018-01-26 11:46 | PN ---
Progress Note - Progress Note Date of Service: 01/26/18 Note: CRITICAL CARE MEDICINE DATE: 01/26/18 TIME: 1140 Pt tolerating over hour post liberation. Much clearer. Knows where he is, day, why here etc. 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 No complaint on neck pain. Collar off. No pain to palpation, active nor passive motion, witg full rom. Collar discontinued. Disposition: ICU Code Status: Full Critical Care Time: 5min Lovely Early DO
[2018-01-26] MEDS ORDERED: Dexmedetomidine* 200 MCG in NS 0.9% 50 ML* 48 ML IVPB SCH ×4 (12:00)
--- NOTE | 2018-01-26 13:32 | PN ---
Progress Note - Progress Note Date of Service: 01/26/18 Note: CRITICAL CARE MEDICINE DATE: 01/26/18 TIME: 1330 D/w ENT. No acute needs. Can follow up with ENT for outpt audiogram. Critical Care Time: 5min Lovely Early DO
[2018-01-26] MEDS ORDERED: Potassium Chlor TAB* 20 MEQ TAB.ER PO ONE (19:00)
--- NOTE | 2018-01-26 21:42 | PN ---
Progress Note - Progress Note Date of Service: 01/26/18 SOAP: Subjective: []No events ON. No reported SZ. Patient was seen earlier today before and after extubation. C spine cleared by Dr Chahal earlier. 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 Does not recall exact details of SZ. Objective: []VSS, Afebrile. Mild skin contusion rt frontal area. No laceration. No foreign object to inspection or palpation. Rt periorbital echymosis improving. AAOx3 DAVID, CN II-XII grossly intact. Motor 5/5 all extremities, No pronator drift Sensory grossly intact to light touch No tenderness to palpation C/T/L spine. Free ROM in cervical spine. Assessment: []52 yom SZ, reported fall, Rt frontal fracture, Left SDH, Left temporal contusion Plan: []Monitor VS, Neurochecks Monotor electrolytes, labs CT brain: evolution of Left temporal contusion, Stable Lt SDH, PNC, Rt frontal fracture, possible lt tentorial SDH. No acute NS intervention at this point. T/L spine XRs Appreciate ICU, Neurology care, ENT input. CT head in am Mitesh Dillard MD
--- NOTE | 2018-01-26 22:03 | RAD ---
INDICATION: Follow-up subdural hematoma COMPARISON: Most recent CT of the brain is dated January 26, 2018 TECHNIQUE: Contiguous axial sections of the brain were obtained from the skull base to the vertex without contrast. FINDINGS: Again seen is nodular hyperattenuating material in the posterior left temporal lobe consistent with intraparenchymal hemorrhage. There is surrounding vasogenic edema measuring 3.0 x 4.4 cm in the axial plane, slightly larger than was measured on the examination acquired at 0632 hours. There is stable extra-axial gas along the lateral dependent margin of the left temporal lobe. There is a foci of gas in the right anterior horn ventricle. There is no midline shift or appearance of intracranial herniation. Mildly hyperattenuating material along the left tentorium cerebelli (axial image 12) could represent a small amount of extra-axial blood tracking along the tentorium. Again seen is a depressed skull fracture involving the right frontal bone. There is again questionable cortical discontinuity between the right temporal lobe and clivus. Partial left mastoid air cell effusion is unchanged. Paranasal sinus mucosal disease is again noted. IMPRESSION: 1. The vasogenic edema in the dependent posterior right temporal lobe measures 3.0 x 4.4 cm in the axial plane, slightly increased from 2.7 x 4.1 cm measured on the CT examination acquired the same date at 0632 hours. The intraparenchymal hemorrhage has not changed significantly. 2. Likely there is a small amount of blood tracking along the left tentorium cerebelli. 3. Depressed skull fracture at the right frontal bone and questionable nondisplaced fracture between the right temporal bone and clivus. 4. Partial left mastoid air cell effusion unchanged from the previous CT examination.
[2018-01-27 05:26] LABS: EGFR Non-African American 138.8 (>60)
[2018-01-27 06:02] LABS: Hematocrit 34 % (42-52); Hemoglobin 12.1 g/dl (14.0-18.0); Mean Corpuscular HGB Conc 35 g/dl (31-36); Mean Corpuscular Hemoglobin 35 pg (27-31); Mean Corpuscular Volume 99 fL (80-94); Platelet Count 101 10^3/ul (150-450); Red Blood Count 3.45 10^6/ul (4.0-5.4); Red Cell Distribution Width 15 % (10.5-15)
--- NOTE | 2018-01-27 07:09 | PN ---
Progress Note - Progress Note Date of Service: 01/26/18 Note: Nursing reporting new anisocoria previously documented as equal. Upon arrival R pupil is 6mm, L 3mm w/ both reactive. Mental status intact. Neurologically non- focal. Tiera Early MD critical care apprised, advised repeat CT brain which revealed no significant change. Hernandez Dillard MD neurosurgery was informed of the finding and stable CT. He requested a CTA of the head in the AM to evaluate possibility of pseudo-aneurysm formation.
[2018-01-27] MEDS ORDERED: Iohexol 350* (CONTRAST) 500 ML MDV IV ONE (08:31)
--- NOTE | 2018-01-27 08:56 | RAD ---
INDICATION: Back pain after falling during a seizure COMPARISON: None. TECHNIQUE: 3 views of the lumbar spine and 2 views of the thoracic spine were obtained. FINDINGS: Degenerative changes of the thoracic spine includes mild loss of intervertebral disc height at the mid-level. The vertebral bodies are anatomically aligned in the AP and lateral projection. On the sagittal view image of the lumbar spine there is loss of height of the superior endplate anteriorly of the L1 vertebral body. The posterior margin of the vertebral body is intact and there is no retropulsion of fragments. Degenerative changes seen at the lumbar spine include loss of intervertebral disc height and anterior marginal osteophyte formation. IMPRESSION: 1. Questionable cortical discontinuity along the anterior margin of the L1 vertebral body and vertebral body height loss could be an acute compression deformity depending on the patient's clinical presentation. There are no prior images available for comparison to comment on chronicity. There is no retropulsion of fragments posteriorly into the thecal sac. 2. Additional chronic appearing degenerative changes described above.
--- NOTE | 2018-01-27 09:07 | RAD ---
INDICATION: Subdural hematoma with new anisocoria. COMPARISON: Multiple recent brain CTs, most recently CT of the brain dated January 26, 2018 acquired at 2200 hours TECHNIQUE: A CT angiogram of the head only was performed with 6 cc of Omnipaque 350. Contiguous axial sections were obtained from the base of the skull through the vertex. Images were reconstructed in the sagittal, coronal planes and in a 3-D volume rendered format. Imaging findings: The internal carotid, anterior and middle cerebral arteries appear are patent without high grade stenosis or occlusion. The superior portion and intracranial portion of the right vertebral artery is diminutive relative to the left. The visualized portions of the vertebral arteries are adequately patent. The basilar and posterior cerebral arteries appear patent without high grade stenosis or occlusion. The posterior communicating arteries are diminutive bilaterally. No focal luminal filling defect, aneurysm or vascular malformation is seen. NON-ARTERIAL FINDINGS: There is a depressed skull fracture of the right frontal bone as well as questionable fracture between the right temporal bone and clivus (axial image 18 of 74). Again seen is nodular parenchymal hemorrhage at the posterior right temporal lobe with surrounding vasogenic edema. The vasogenic edema measures approximately 2.8 x 4.5 cm in the axial plane not significantly changed since the most recent CT of the brain. There is no active extravasation identified. Paranasal sinus mucosal thickening is again noted. IMPRESSION: 1. Normal CT angiogram of the brain. 2. Dramatic cranial and intracranial findings as described above. The area of vasogenic edema surrounding the left posterior temporal lobe parenchymal hemorrhage is similar in size compared to the most recent noncontrast CT the brain acquired January 26, 2018 at 2200 hours.
[2018-01-27] MEDS ORDERED: Magnesium Sulfate 2 GM IV* 2 GM/50 ML BAG IVPB ONE (09:49)
[2018-01-27] MEDS: Fosphenytoin(*) 100 MG/2 ML VIAL IV SLOW PU SCH (09:53)
[2018-01-27] MEDS: levETIRAcetam IV* 750 MG in NS 0.9% 100 ML* 100 ML IVPB SCH (09:53)
[2018-01-27] MEDS: Potassium Chlor TAB* 20 MEQ TAB.ER PO SCH ×3 (10:51→21:05)
--- NOTE | 2018-01-27 10:51 | PN ---
Progress Note - Progress Note Date of Service: 01/27/18 Note: CRITICAL CARE MEDICINE DATE: 01/27/18 TIME: 1000 SUBJECTIVE: Patient seen and examined. PHYSICAL EXAM: orbital ecchymosis better Vital Signs: Reviewed. stable Neurologic: communicating well. following commands. HEENT: pupils eq and reactive for me but pupillometry could probably show difference Cardiovascular: distant, S1 S2 Respiratory: clear bl Abdomen: obese, soft nt Extremities: warm Access: piv LABS: Reviewed. IMAGING: Reviewed. MEDICATIONS: Reviewed. ASSESSMENT: 52 M Fall Status epilepticus Left SDH Left temporal hematoma/contusion Left temporal bone fx Acute resp failure sec to above - resolved PLAN: doing fine. feels better. on dilantin and keppra and states previously on keppra 750mg bid. Neuro considering leveling on both today and then perhaps keepra 1000mg bid alone if eeg stable tomorrow. oob. po. pt. f/u msk pains. oupt optho and ent evals warranted. neuro and nsgy f/u as well Supportive and preventative care as ordered. SUP: po VTE prophylaxis: scds, oob Disposition: ICU today and floor tomorrow Code Status: Full Critical Care Time: 35min FAbad Early DO
--- NOTE | 2018-01-27 13:50 | PN ---
Progress Note - Progress Note Date of Service: 01/27/18 SOAP: Subjective: [] No events ON except reported transient anisocoria with right pupil dilation that resolved spontaneously. No reported SZ. 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 No complains of diplopia, no neck or back pain. No neck stiffness. Objective: []VSS, Afebrile. Mild skin contusion rt frontal area. Rt periorbital echymosis is improving. AAOx3 DAVID, CN II-XII grossly intact. Motor 5/5 all extremities, No pronator drift Sensory grossly intact to light touch No tenderness to palpation C/T/L spine. Free ROM in cervical spine. Assessment: []52 yom SZ, reported fall, Rt frontal fracture, Left SDH, Left temporal contusion Plan: [] Monitor VS, Neurochecks Monotor electrolytes, labs CTA brain: evolution of Left temporal contusion, Stable Lt SDH, PNC, Rt frontal fracture, possible lt tentorial SDH. No aneurysm. No acute NS intervention at this point. T/L spine XRs revealed possible anterior compression fracture L1. Consider CT T/ L spine. Appreciate ICU, Neurology care, ENT Opth input. Mitesh Dillard MD
[2018-01-27] MEDS: Phenytoin CAP(*) 100 MG CAP.ER PO SCH ×2 (15:08→21:06)
[2018-01-27] MEDS: Acetaminophen ADULT LIQ* 650 MG/20.3 ML UDC PO PRN (21:04)
[2018-01-27] MEDS: levETIRAcetam TAB* 500 MG PO SCH (21:05)
--- NOTE | 2018-01-27 22:50 | PN ---
FOLLOWUP NOTE: DATE OF SERVICE: 01/27/18 HISTORY OF PRESENT ILLNESS: Mr. Daniel is a 52-year-old gentleman admitted to the ICU after head trauma and seizures. He is now extubated and continues to improve from yesterday evening. Pupil asymmetry was noted during the night and CTA was obtained, which showed no evidence of aneurysm and stability of the bleed. He has had no seizures. It was confirmed last night that he had been on Keppra in the past 750 mg b.i.d. that was stopped 2 years ago. He had tolerated it well. He was on no other seizure medication. At this point, he is on both levetiracetam 750 mg IV q.12 hours and fosphenytoin 150 mg IV b.i.d. PHYSICAL EXAMINATION: On examination, Mr. Daniel's blood pressure was 163/ 103. His pulse was 98, respiratory rate was 13, saturation was 97% and most recent temperature was 99.2. He had a regular cardiac rhythm. His lungs were clear to auscultation. There was ecchymosis around the right eye with swollen eyelid leading to some ptosis. He described soreness of joints on the right hand side; however, no clear movement abnormality was noted on exam. He had pulses which were intact in the dorsalis pedis and posterior tibialis and no peripheral edema. 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 His pupils were asymmetric to right from 4 mm to 2 mm and left 2 mm to 1 mm. He had full extraocular movements with no diplopia. Full grijalva to confrontation. His facial expression, sensation and hearing were equal. Palate was upgoing. Tongue was midline. Sternocleidomastoid and trapezius were 5/5 in strength. There was normal bulk and tone. No pronator drift. He gave good strength in his upper and lower extremities, albeit there was some soreness in the right shoulder, hip and knee when doing testing. He had normal [id number]-nd-bqyj and glzt-jg-aieu movements. There was no asymmetry to pinprick, cold or light touch. Vibration sensation was decreased at the large toes by approximately 15 seconds, ankles by 5 seconds. His reflexes were 2+ and symmetric with the exception of the ankles that were 1+. Toes were flexor response. Gait was not tested at this time due to clinical status. His CBC today showed normal white count, hemoglobin and hematocrit were 12.1 and 34, and platelets were 101,000. His metabolic panel showed sodium of 138, his potassium was low at 2.9, BUN 4, creatinine 0.61 with an elevated BUN/ creatinine ratio at 6.6. His glucose was 104 and magnesium was 1.7. Remainder of the metabolic panel was normal. His phenytoin level yesterday was 5.7 and he had a CTA as noted above, which was reviewed directly. He also had thoracic and lumbosacral x-rays and there was a question of L1 compression deformity. Please see report for details. IMPRESSION: Mr. Daniel is a 52-year-old gentleman with known history of epilepsy off Keppra who had seizures and head trauma resulting in admission with left temporal bleed and frontal subdural and repeat seizures. He was initially sedated, intubated, placed on Keppra, Dilantin, propofol as well as given acyclovir. He has shown improvement and is extubated. I am pleased to see how well he is doing. In regards to seizures, we will check an EEG tomorrow. We will continue on the current medication regimen. If there is no seizure discharges, then I would simplify to monotherapy by increasing Keppra dose 1000 mg b.i.d. and discontinuing Dilantin. As long as he is swallowing, he can be switched over to p.o. medications. There is some pupil asymmetry with response to light. He was a little bit slower in counting fingers in all grijalva on the right. I was able to see his fundi and I could not see any blood. It is possible that some of the asymmetry could be secondary to trauma. There is no evidence of aneurysm. He does admit that there has been some more difficulty seeing out of his right eye in the past. It is unclear what his baseline is. Unfortunately, yesterday I could not get his eyes open to be able to examine his pupil, so it is hard to tell if this is a new change versus something that has been seen since admission. His pupils were noted to be small in the ER in the setting of intubation and sedation. Dr. Estevez will be taking over care in the morning. He had originally met Mr. Daniel in the emergency room. Over 40 minutes was spent in direct patient care and case was discussed with nurse and Dr. Early in the ICU. All questions were answered. [id number]/[facility] #: [id number] BARRETT
[2018-01-28 05:39] LABS: Hematocrit 36 % (42-52); Hemoglobin 12.8 g/dl (14.0-18.0); Mean Corpuscular HGB Conc 35 g/dl (31-36); Mean Corpuscular Hemoglobin 34 pg (27-31); Mean Corpuscular Volume 98 fL (80-94); Mean Platelet Volume 7.1 um3 (7.4-10.4); Platelet Count 135 10^3/ul (150-450); Red Blood Count 3.71 10^6/ul (4.0-5.4); Red Cell Distribution Width 14 % (10.5-15); White Blood Count 4.9 10^3/ul (3.5-10.8)
[2018-01-28] MEDS: Acetaminophen ADULT LIQ* 650 MG/20.3 ML UDC PO PRN ×2 (05:51→14:57)
[2018-01-28 05:58] LABS: EGFR Non-African American 126.7 (>60)
[2018-01-28] MEDS: levETIRAcetam TAB* 500 MG PO SCH ×2 (07:56→20:12)
[2018-01-28] MEDS: Phenytoin CAP(*) 100 MG CAP.ER PO SCH ×3 (07:57→20:12)
[2018-01-28] MEDS ORDERED: Magnesium Sulfate IV* 3 GM in NS 0.9% 100 ML* 100 ML IVPB ONE (09:00)
[2018-01-28] MEDS: Magnesium Oxide TAB* 400 MG PO SCH (09:33)
--- NOTE | 2018-01-28 12:14 | RAD ---
Indication: Fracture of the thoracic spine. CT of the thoracic spine was obtained in the axial plane. Sagittal and coronal reconstructed images were obtained. Mild compression of the L1 vertebra is noted age of which is undetermined. Please see CT of the lumbar spine report. The remainder of the thoracic spine is unremarkable. Spinal canal appears to be intact. There is a right pleural effusion in the right hemithorax. No fracture is identified. IMPRESSION: Mild compression of L1 vertebra is incompletely visualized. No fracture of the remainder of the thoracic spine is noted.
--- NOTE | 2018-01-28 12:17 | RAD ---
Indication: Evaluate for fracture. CT of the lumbar spine was obtained in the axial plane. Sagittal and coronal reconstructed images were obtained. There is mild compression of the L1 vertebra. The margins appear well-corticated. This is less than 25% compression. No evidence of paravertebral soft tissue swelling is noted. No evidence of disc protrusion or retropulsed fragment is noted. Findings consistent with a chronic fracture of the L1 vertebra. The L2, L3, L4 and L5 vertebra demonstrates no fracture. The sacrum and sacroiliac joints are intact. IMPRESSION: Less than 25% compression of L1.
--- NOTE | 2018-01-28 16:30 | PN ---
Subjective Date of Service: 01/28/18 Interval History: pt feels well. did well with PT.Denies headache, no seizure activity Objective Active Medications: Acetaminophen (Tylenol Adult Liq*) 650 mg PO Q6H PRN PRN Reason: FEVER/PAIN Last Admin: 01/28/18 14:57 Dose: 650 mg Levetiracetam (Keppra Tab*) 750 mg PO BID [facility] Last Admin: 01/28/18 07:56 Dose: 750 mg Magnesium Oxide (Magox 400 Tab*) 800 mg PO DAILY [facility] Last Admin: 01/28/18 09:33 Dose: 800 mg Ondansetron HCl (Zofran Inj*) 4 mg IV Q6H PRN PRN Reason: NAUSEA Phenytoin Sodium (Dilantin Cap(*)) 100 mg PO TID [facility] Last Admin: 01/28/18 14:37 Dose: 100 mg Vital Signs - 8 hr 01/28/18 01/28/18 01/28/18 08:30 08:33 08:45 Temperature Pulse Rate 83 94 91 Respiratory 20 16 16 Rate Blood Pressure 119/87 (mmHg) O2 Sat by Pulse 95 94 94 Oximetry 01/28/18 01/28/18 01/28/18 09:00 09:01 09:15 Temperature Pulse Rate 93 91 104 Respiratory 18 17 14 Rate Blood Pressure 130/94 (mmHg) O2 Sat by Pulse 94 96 97 Oximetry 01/28/18 01/28/18 01/28/18 09:30 09:31 09:45 Temperature Pulse Rate 100 101 101 Respiratory 19 17 11 Rate Blood Pressure 139/98 (mmHg) O2 Sat by Pulse 89 96 95 Oximetry 01/28/18 01/28/18 01/28/18 10:00 10:15 10:50 Temperature Pulse Rate 104 95 Respiratory 15 19 13 Rate Blood Pressure 132/87 (mmHg) O2 Sat by Pulse 96 97 Oximetry 01/28/18 01/28/18 11:00 15:56 Temperature 98.3 F Pulse Rate 104 Respiratory 13 18 Rate Blood Pressure 131/89 134/98 (mmHg) O2 Sat by Pulse 98 Oximetry Oxygen Devices in Use Now: None Appearance: 52 yo F in NAD, AAOx3 Eyes: No Scleral Icterus, PERRLA Ears/Nose/Mouth/Throat: NL Teeth, Lips, Gums, Mucous Membranes Moist Neck: NL Appearance and Movements; NL JVP, Trachea Midline Respiratory: Symmetrical Chest Expansion and Respiratory Effort, Clear to Auscultation Cardiovascular: NL Sounds; No Murmurs; No JVD, RRR Abdominal: NL Sounds; No Tenderness; No Distention, No Hepatosplenomegaly Lymphatic: No Cervical Adenopathy Extremities: No Edema, No Clubbing, Cyanosis Skin: No Nodules or Sclerosis, - - b/l orbital ecchymoses Neurological: Alert and Oriented x 3, NL Muscle Strength and Tone Result Diagrams: 01/28/18 05:30 01/28/18 05:30 Additional Lab and Data: Lab Results 01/25/18 01/25/18 01/25/18 Range/Units 10:44 10:44 10:44 WBC 5.2 (3.5-10.8) 10^3/ul RBC 4.14 (4.0-5.4) 10^6/ul Hgb 14.2 (14.0-18.0) g/dl Hct 42 (42-52) % MCV 101 H (80-94) fL MCH 34 H (27-31) pg MCHC 34 (31-36) g/dl RDW 15 (10.5-15) % Plt Count 121 L (150-450) 10^3/ul MPV 7.9 (7.4-10.4) um3 Neut % (Auto) 68.5 (38-83) % Lymph % (Auto) 16.0 L (25-47) % Meigs % (Auto) 14.0 H (0-7) % Eos % (Auto) 0.7 (0-6) % Baso % (Auto) 0.8 (0-2) % Absolute Neuts (auto) 3.4 (1.5-7.7) 10^3/ul Absolute Lymphs (auto) 0.8 L (1.0-4.8) 10^3/ul Absolute Monos (auto) 0.7 (0-0.8) 10^3/ul Absolute Eos (auto) 0 (0-0.6) 10^3/ul Absolute Basos (auto) 0 (0-0.2) 10^3/ul Absolute Nucleated RBC 0 10^3/ul Nucleated RBC % 0 INR (Anticoag Therapy) 0.92 (0.77-1.02) Sodium 134 L (139-145) mmol/L Potassium 3.4 L (3.5-5.0) mmol/L Chloride 96 L (101-111) mmol/L Carbon Dioxide 14 L* (22-32) mmol/L Anion Gap 24 H (2-11) mmol/L BUN 13 (6-24) mg/dL Creatinine 1.00 (0.67-1.17) mg/dL Est GFR ( Amer) 100.9 (>60) Est GFR (Non-Af Amer) 78.5 (>60) BUN/Creatinine Ratio 13.0 (8-20) Glucose 203 H (70-100) mg/dL Lactic Acid (0.5-2.0) mmol/L Calcium 9.9 (8.6-10.3) mg/dL Magnesium 2.0 (1.9-2.7) mg/dL Total Bilirubin 1.10 H (0.2-1.0) mg/dL AST 39 (13-39) U/L ALT 31 (7-52) U/L Alkaline Phosphatase 59 (34-104) U/L Total Protein 7.3 (6.4-8.9) g/dL Albumin 4.4 (3.2-5.2) g/dL Globulin 2.9 (2-4) g/dL Albumin/Globulin Ratio 1.5 (1-3) Urine Color Urine Appearance Urine pH (5-9) Ur Specific [place] (1.010-1.030) Urine Protein (Negative) Urine Ketones (Negative) Urine Blood (Negative) Urine Nitrate (Negative) Urine Bilirubin (Negative) Urine Urobilinogen (Negative) Ur Leukocyte Esterase (Negative) Urine WBC (Auto) (Absent) Urine RBC (Auto) (Absent) Ur Squamous Epith Cells (Absent) Urine Bacteria (Absent) Hyaline Casts (Absent) Urine Glucose (Negative) Urine Opiates Screen (None Detect) Ur Barbiturates Screen (None Detect) Phenytoin < 2.5 L (10-20) mcg/mL Valproic Acid < 13.0 L (50-100) mcg/mL Carbamazepine < 2.0 L (4.0-12.0) mcg/mL Ur Phencyclidine Scrn (None Detect) Ur Amphetamines Screen (None Detect) Phenobarbital < 5.0 L (17-34) mcg/mL U Benzodiazepines Scrn (None Detect) Urine Cocaine Screen (None Detect) U Cannabinoids Screen (None Detect) Serum Alcohol < 10 (<10) mg/dL 01/25/18 01/25/18 01/25/18 Range/Units 10:44 15:00 15:00 WBC (3.5-10.8) 10^3/ul RBC (4.0-5.4) 10^6/ul Hgb (14.0-18.0) g/dl Hct (42-52) % MCV (80-94) fL MCH (27-31) pg MCHC (31-36) g/dl RDW (10.5-15) % Plt Count (150-450) 10^3/ul MPV (7.4-10.4) um3 Neut % (Auto) (38-83) % Lymph % (Auto) (25-47) % Meigs % (Auto) (0-7) % Eos % (Auto) (0-6) % Baso % (Auto) (0-2) % Absolute Neuts (auto) (1.5-7.7) 10^3/ul Absolute Lymphs (auto) (1.0-4.8) 10^3/ul Absolute Monos (auto) (0-0.8) 10^3/ul Absolute Eos (auto) (0-0.6) 10^3/ul Absolute Basos (auto) (0-0.2) 10^3/ul Absolute Nucleated RBC 10^3/ul Nucleated RBC % INR (Anticoag Therapy) (0.77-1.02) Sodium (139-145) mmol/L Potassium (3.5-5.0) mmol/L Chloride (101-111) mmol/L Carbon Dioxide (22-32) mmol/L Anion Gap (2-11) mmol/L BUN (6-24) mg/dL Creatinine (0.67-1.17) mg/dL Est GFR ( Amer) (>60) Est GFR (Non-Af Amer) (>60) BUN/Creatinine Ratio (8-20) Glucose (70-100) mg/dL Lactic Acid 14.0 H* (0.5-2.0) mmol/L Calcium (8.6-10.3) mg/dL Magnesium (1.9-2.7) mg/dL Total Bilirubin (0.2-1.0) mg/dL AST (13-39) U/L ALT (7-52) U/L Alkaline Phosphatase (34-104) U/L Total Protein (6.4-8.9) g/dL Albumin (3.2-5.2) g/dL Globulin (2-4) g/dL Albumin/Globulin Ratio (1-3) Urine Color Yellow Urine Appearance Clear Urine pH 5.0 (5-9) Ur Specific [place] 1.016 (1.010-1.030) Urine Protein 2+(100 mg/dl) A (Negative) Urine Ketones 1+ A (Negative) Urine Blood 2+ A (Negative) Urine Nitrate Negative (Negative) Urine Bilirubin Negative (Negative) Urine Urobilinogen Negative (Negative) Ur Leukocyte Esterase Negative (Negative) Urine WBC (Auto) Trace(0-5/hpf) (Absent) Urine RBC (Auto) Trace(0-2/hpf) (Absent) Ur Squamous Epith Cells Present A (Absent) Urine Bacteria Absent (Absent) Hyaline Casts Present A (Absent) Urine Glucose Negative (Negative) Urine Opiates Screen None detected (None Detect) Ur Barbiturates Screen None detected (None Detect) Phenytoin (10-20) mcg/mL Valproic Acid (50-100) mcg/mL Carbamazepine (4.0-12.0) mcg/mL Ur Phencyclidine Scrn None detected (None Detect) Ur Amphetamines Screen None detected (None Detect) Phenobarbital (17-34) mcg/mL U Benzodiazepines Scrn Presumptive positive A (None Detect) Urine Cocaine Screen None detected (None Detect) U Cannabinoids Screen None detected (None Detect) Serum Alcohol (<10) mg/dL Microbiology and Other Data: Microbiology 01/25/18 18:15 Nasal Screen MRSA (PCR)([facility]) - Final Nasal Mrsa Not Detected Assess/Plan/Problems-Billing Assessment: 52 yo M with h/o seizure disorder (on Keppra 1000 mg BID at home) and HTN presents after a seizure and hitting head at store's counter resulting in temporal lobe hematoma/contusion, temporal bone fracture, SDH and respiratory failure requiring intubation, now extubated transferred out of ICU. - Patient Problems (1) Head trauma Comment: resulted in SDH and temporal lobe contusion/hematoma, temporal bone fx -conservative tx Appreciate neurosurgery's consult. Cont PT (2) Seizures Comment: On Dilantin and Keppra being adjusted by neurology (3) Hypomagnesemia Comment: replacing IV and PO (4) Lumbar compression fracture Comment: mild at 25%, pt c/o no back pain , ? old? less likley acute fx (5) DVT prophylaxis Comment: ambulatory, no anticoagulation due to SDH Status and Disposition: inpatient, may be able to go home tomorrow
--- NOTE | 2018-01-29 02:22 | PN ---
NEUROLOGICAL FOLLOWUP NOTE: DATE OF VISIT/DICTATION: 01/28/18 PATIENT OF: Dr. Early. HISTORY: I got further history from the patient that he had been seen by a neurologist on [place] for 2 seizures he had in 2014 and was on Keppra for apparently less than a year. He then came off and he has been seizure free on no medicines since he had no aura or syncopal warning before his event at _ in [facility]. Since Sunday, he has had no further seizures. He has had some anisocoria with right pupillary dilatation, which has fluctuated. MEDICATIONS: Include: 1. Keppra 750 mg b.i.d. 2. Dilantin 100 mg t.i.d. 3. Mag-ox. 4. Zofran p.r.n. ALLERGIES: He has no allergies. He has no complaints. He has no clear nasal discharge. PHYSICAL EXAMINATION: Vital Signs: Temperature 99, pulse 95, respirations 13, blood pressure 131/89. He is alert and oriented with normal speech and comprehension. Cranial nerves II through XII are intact. Right pupil is 3 mm but reactive, left pupil 2 mm. Chest: Clear. Cardiovascular: Regular rate and rhythm. Abdomen: Soft, with positive bowel sounds. There is no pronator drift. Fine motor was intact both hands. Strength was intact. Reflexes were symmetric. DIAGNOSTIC STUDIES: His EEG was normal. His lumbar and thoracic CT scan showed L1, less than 25% compression fracture. His CBC was normal. Today, he had normal CMP other than sodium of 135. IMPRESSION: I think Mr. Daniel needs to be on long-term anticonvulsants. I discussed this with him. Keppra monotherapy would be a reasonable choice and he tolerated that well without any depression he notes. I also discussed with his pneumocephalus and his contusions, he needs to be on the lookout for clear nasal discharge because he could have a potential CSF leak. He has nothing like that at this point. We discussed that he cannot drive now and that he will need neurological followup see him in a month and he will need levels before that. [id number]/[facility] #: [id number] [facility]
--- NOTE | 2018-01-29 03:37 | EEG ---
ELECTROENCEPHALOGRAPHY: DATE OF STUDY: 01/28/18 - ROOM #446 PATIENT OF: Dr. Kaur. HISTORY: This is a 52-year-old man being evaluated for seizures and head trauma and has a left temporal and left frontal subdural. MEDICATIONS: Include: 1. Dilantin. 2. Keppra. 3. Zofran. INTERPRETATION: With the patient awake, background cerebral activity consists of moderate amplitude posterior dominant 9 to 10 Hz rhythm, which attenuates with eye opening and reappears with eye closure. The patient never falls asleep. IMPRESSION: This awake EEG is within normal limits. [id number]/[facility] #: [id number] [facility]
[2018-01-29 05:42] LABS: Hematocrit 35 % (42-52); Hemoglobin 12.4 g/dl (14.0-18.0); Mean Corpuscular HGB Conc 35 g/dl (31-36); Mean Corpuscular Hemoglobin 35 pg (27-31); Mean Corpuscular Volume 99 fL (80-94); Mean Platelet Volume 6.8 um3 (7.4-10.4); Platelet Count 168 10^3/ul (150-450); Red Blood Count 3.57 10^6/ul (4.0-5.4); Red Cell Distribution Width 14 % (10.5-15); White Blood Count 4.3 10^3/ul (3.5-10.8)
[2018-01-29 06:09] LABS: EGFR Non-African American 120.4 (>60)
[2018-01-29] MEDS: levETIRAcetam TAB* 500 MG PO SCH ×2 (09:03→20:18)
[2018-01-29] MEDS: Magnesium Oxide TAB* 400 MG PO SCH (09:03)
[2018-01-29] MEDS: Phenytoin CAP(*) 100 MG CAP.ER PO SCH (09:03)
[2018-01-29] MEDS ORDERED: Magnesium Sulfate IV* 3 GM in NS 0.9% 100 ML* 100 ML IVPB ONE (09:30)
--- NOTE | 2018-01-29 15:18 | PN ---
Subjective Date of Service: 01/29/18 Interval History: Pt did well with PT, but still very impulsive and rather poor historian and poor recall. Confirmed pt's meds from [facility] pharmacy: Keppra 750 BID Atenolol 50 mg QD HCTZ 25 mg QD Norvasc 5 mg QD Objective Active Medications: Acetaminophen (Tylenol Adult Liq*) 650 mg PO Q6H PRN PRN Reason: FEVER/PAIN Last Admin: 01/28/18 14:57 Dose: 650 mg Amlodipine Besylate (Norvasc Tab*) 5 mg PO DAILY [facility] Atenolol (Tenormin Tab*) 50 mg PO DAILY [facility] Hydrochlorothiazide (Hydrodiuril Tab*) 25 mg PO DAILY [facility] Levetiracetam (Keppra Tab*) 1,000 mg PO BID [facility] Magnesium Oxide (Magox 400 Tab*) 800 mg PO DAILY [facility] Last Admin: 01/29/18 09:03 Dose: 800 mg Ondansetron HCl (Zofran Inj*) 4 mg IV Q6H PRN PRN Reason: NAUSEA Vital Signs - 8 hr 01/29/18 01/29/18 01/29/18 07:17 07:25 08:00 Temperature 98.6 F Pulse Rate 92 Respiratory 20 16 Rate Blood Pressure 165/101 164/92 (mmHg) O2 Sat by Pulse 98 Oximetry 01/29/18 11:04 Temperature 98.1 F Pulse Rate 95 Respiratory 20 Rate Blood Pressure 154/96 (mmHg) O2 Sat by Pulse 97 Oximetry Oxygen Devices in Use Now: None Appearance: 52 yo m in NAD, AAOx3 Eyes: No Scleral Icterus, - - r pupil slightly larger then left Ears/Nose/Mouth/Throat: NL Teeth, Lips, Gums, Mucous Membranes Moist Neck: NL Appearance and Movements; NL JVP, Trachea Midline Respiratory: Symmetrical Chest Expansion and Respiratory Effort, Clear to Auscultation Cardiovascular: NL Sounds; No Murmurs; No JVD, RRR Abdominal: NL Sounds; No Tenderness; No Distention Lymphatic: No Cervical Adenopathy Extremities: No Edema, No Clubbing, Cyanosis Skin: No Nodules or Sclerosis, - - r orbital ecchymosis, R arm ecchymosis Neurological: Alert and Oriented x 3, NL Muscle Strength and Tone Result Diagrams: 01/29/18 05:23 01/29/18 05:24 Additional Lab and Data: Lab Results 01/25/18 01/25/18 01/25/18 Range/Units 10:44 10:44 10:44 WBC 5.2 (3.5-10.8) 10^3/ul RBC 4.14 (4.0-5.4) 10^6/ul Hgb 14.2 (14.0-18.0) g/dl Hct 42 (42-52) % MCV 101 H (80-94) fL MCH 34 H (27-31) pg MCHC 34 (31-36) g/dl RDW 15 (10.5-15) % Plt Count 121 L (150-450) 10^3/ul MPV 7.9 (7.4-10.4) um3 Neut % (Auto) 68.5 (38-83) % Lymph % (Auto) 16.0 L (25-47) % Charles % (Auto) 14.0 H (0-7) % Eos % (Auto) 0.7 (0-6) % Baso % (Auto) 0.8 (0-2) % Absolute Neuts (auto) 3.4 (1.5-7.7) 10^3/ul Absolute Lymphs (auto) 0.8 L (1.0-4.8) 10^3/ul Absolute Monos (auto) 0.7 (0-0.8) 10^3/ul Absolute Eos (auto) 0 (0-0.6) 10^3/ul Absolute Basos (auto) 0 (0-0.2) 10^3/ul Absolute Nucleated RBC 0 10^3/ul Nucleated RBC % 0 INR (Anticoag Therapy) 0.92 (0.77-1.02) Sodium 134 L (139-145) mmol/L Potassium 3.4 L (3.5-5.0) mmol/L Chloride 96 L (101-111) mmol/L Carbon Dioxide 14 L* (22-32) mmol/L Anion Gap 24 H (2-11) mmol/L BUN 13 (6-24) mg/dL Creatinine 1.00 (0.67-1.17) mg/dL Est GFR ( Amer) 100.9 (>60) Est GFR (Non-Af Amer) 78.5 (>60) BUN/Creatinine Ratio 13.0 (8-20) Glucose 203 H (70-100) mg/dL Lactic Acid (0.5-2.0) mmol/L Calcium 9.9 (8.6-10.3) mg/dL Magnesium 2.0 (1.9-2.7) mg/dL Total Bilirubin 1.10 H (0.2-1.0) mg/dL AST 39 (13-39) U/L ALT 31 (7-52) U/L Alkaline Phosphatase 59 (34-104) U/L Total Protein 7.3 (6.4-8.9) g/dL Albumin 4.4 (3.2-5.2) g/dL Globulin 2.9 (2-4) g/dL Albumin/Globulin Ratio 1.5 (1-3) Urine Color Urine Appearance Urine pH (5-9) Ur Specific [place] (1.010-1.030) Urine Protein (Negative) Urine Ketones (Negative) Urine Blood (Negative) Urine Nitrate (Negative) Urine Bilirubin (Negative) Urine Urobilinogen (Negative) Ur Leukocyte Esterase (Negative) Urine WBC (Auto) (Absent) Urine RBC (Auto) (Absent) Ur Squamous Epith Cells (Absent) Urine Bacteria (Absent) Hyaline Casts (Absent) Urine Glucose (Negative) Urine Opiates Screen (None Detect) Ur Barbiturates Screen (None Detect) Phenytoin < 2.5 L (10-20) mcg/mL Valproic Acid < 13.0 L (50-100) mcg/mL Carbamazepine < 2.0 L (4.0-12.0) mcg/mL Ur Phencyclidine Scrn (None Detect) Ur Amphetamines Screen (None Detect) Phenobarbital < 5.0 L (17-34) mcg/mL U Benzodiazepines Scrn (None Detect) Urine Cocaine Screen (None Detect) U Cannabinoids Screen (None Detect) Serum Alcohol < 10 (<10) mg/dL 01/25/18 01/25/18 01/25/18 Range/Units 10:44 15:00 15:00 WBC (3.5-10.8) 10^3/ul RBC (4.0-5.4) 10^6/ul Hgb (14.0-18.0) g/dl Hct (42-52) % MCV (80-94) fL MCH (27-31) pg MCHC (31-36) g/dl RDW (10.5-15) % Plt Count (150-450) 10^3/ul MPV (7.4-10.4) um3 Neut % (Auto) (38-83) % Lymph % (Auto) (25-47) % Charles % (Auto) (0-7) % Eos % (Auto) (0-6) % Baso % (Auto) (0-2) % Absolute Neuts (auto) (1.5-7.7) 10^3/ul Absolute Lymphs (auto) (1.0-4.8) 10^3/ul Absolute Monos (auto) (0-0.8) 10^3/ul Absolute Eos (auto) (0-0.6) 10^3/ul Absolute Basos (auto) (0-0.2) 10^3/ul Absolute Nucleated RBC 10^3/ul Nucleated RBC % INR (Anticoag Therapy) (0.77-1.02) Sodium (139-145) mmol/L Potassium (3.5-5.0) mmol/L Chloride (101-111) mmol/L Carbon Dioxide (22-32) mmol/L Anion Gap (2-11) mmol/L BUN (6-24) mg/dL Creatinine (0.67-1.17) mg/dL Est GFR ( Amer) (>60) Est GFR (Non-Af Amer) (>60) BUN/Creatinine Ratio (8-20) Glucose (70-100) mg/dL Lactic Acid 14.0 H* (0.5-2.0) mmol/L Calcium (8.6-10.3) mg/dL Magnesium (1.9-2.7) mg/dL Total Bilirubin (0.2-1.0) mg/dL AST (13-39) U/L ALT (7-52) U/L Alkaline Phosphatase (34-104) U/L Total Protein (6.4-8.9) g/dL Albumin (3.2-5.2) g/dL Globulin (2-4) g/dL Albumin/Globulin Ratio (1-3) Urine Color Yellow Urine Appearance Clear Urine pH 5.0 (5-9) Ur Specific [place] 1.016 (1.010-1.030) Urine Protein 2+(100 mg/dl) A (Negative) Urine Ketones 1+ A (Negative) Urine Blood 2+ A (Negative) Urine Nitrate Negative (Negative) Urine Bilirubin Negative (Negative) Urine Urobilinogen Negative (Negative) Ur Leukocyte Esterase Negative (Negative) Urine WBC (Auto) Trace(0-5/hpf) (Absent) Urine RBC (Auto) Trace(0-2/hpf) (Absent) Ur Squamous Epith Cells Present A (Absent) Urine Bacteria Absent (Absent) Hyaline Casts Present A (Absent) Urine Glucose Negative (Negative) Urine Opiates Screen None detected (None Detect) Ur Barbiturates Screen None detected (None Detect) Phenytoin (10-20) mcg/mL Valproic Acid (50-100) mcg/mL Carbamazepine (4.0-12.0) mcg/mL Ur Phencyclidine Scrn None detected (None Detect) Ur Amphetamines Screen None detected (None Detect) Phenobarbital (17-34) mcg/mL U Benzodiazepines Scrn Presumptive positive A (None Detect) Urine Cocaine Screen None detected (None Detect) U Cannabinoids Screen None detected (None Detect) Serum Alcohol (<10) mg/dL Microbiology and Other Data: Microbiology 01/25/18 18:15 Nasal Screen MRSA (PCR)([facility]) - Final Nasal Mrsa Not Detected Assess/Plan/Problems-Billing Assessment: 52 yo M with h/o seizure disorder (on Keppra 1000 mg BID at home) and HTN presents after a seizure and hitting head at store's counter resulting in temporal lobe hematoma/contusion, temporal bone fracture, SDH and respiratory failure requiring intubation, now extubated transferred out of ICU. - Patient Problems (1) Head trauma Comment: resulted in SDH and temporal lobe contusion/hematoma, temporal bone fx -conservative tx Appreciate neurosurgery's consult. Cont PT Cognitive problems and impulse control problems noted. Asked speech therapy to do cognitive eval (2) Seizures Comment: on Keppra 750 mg BID at home on the day of admission. D/w DR. Estevez,will increase Keppra to 1000 BID, d/c dilantin (3) Hypomagnesemia Comment: replacing IV and PO (4) Lumbar compression fracture Comment: mild at 25%, pt c/o no back pain , ? old? less likely acute fx (5) HTN (hypertension) Comment: restarted home Atenolol/HCTZ/Norvasc (6) DVT prophylaxis Comment: ambulatory, no anticoagulation due to SDH Status and Disposition: inpatient, d/c tomorrow
[2018-01-29] MEDS: amLODIPine TAB* 5 MG PO SCH (16:02)
[2018-01-29] MEDS: Hydrochlorothiazide TAB* 25 MG PO SCH (16:02)
--- NOTE | 2018-01-29 18:20 | PN ---
Progress Note - Progress Note Date of Service: 01/29/18 SOAP: Subjective: [] No events ON. No reported SZ. No complains of diplopia, no neck or back pain. No neck stiffness. Objective: []VSS, Afebrile. Rt periorbital echymosis significantly improving. AAOx3 DAVID, CN II-XII grossly intact. Motor 5/5 all extremities, No pronator drift Sensory grossly intact to light touch No tenderness to palpation C/T/L spine. Free ROM in cervical spine. Assessment: []52 yom SZ, reported fall, Rt frontal fracture, Left SDH, Left temporal contusion Plan: [] Monitor VS, Neurochecks No acute NS intervention at this point. CT T/L spine chronic anterior compression fracture L1 Appreciate ICU, Neurology care, ENT Opth input. Follow up in office in 2-[address] head. Mitesh Dillard MD
--- NOTE | 2018-01-29 22:11 | PN ---
NEUROLOGICAL FOLLOWUP NOTE: DATE OF VISIT: 01/29/18 PATIENT OF: Dr. Boone. 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 He has had no further seizures. He has no headache, no staring spells. He is walking more and feeling more like himself. He notes that he is on Keppra 750 twice a day at home and Dr. Boone has apparently called the pharmacy and this is what his dose has been. He has negative review of symptoms at this point. PHYSICAL EXAMINATION: Temperature 98.1, pulse 95, respirations 20, blood pressure 154/96. He is alert and oriented with normal speech and comprehension. Cranial nerves II through XII are intact. No pronator drift. Gait is normal. Strength is 5/5. Chest: Clear. Cardiovascular: Regular rate and rhythm. Abdomen: Soft with positive bowel sounds. LABORATORY DATA: White count is benign, hematocrit is 35. Electrolytes were normal. IMPRESSION AND PLAN: Donavon has no further seizures. We increasing his Keppra dose to 1000 mg twice a day and he will be off of Dilantin. He is not going to drive for now. I will see him back in the office in 5 or 6 weeks after he gets a Keppra level. There has been some concern that he is in a problem with alcohol. We have given him banana bag with thiamine in the ER. He needs to get a primary care doctor, but I will be glad to be his neurologist as an outpatient. Thank you for sharing his case. [id number]/[facility] #: [id number] [facility]ENTER[facility]
[2018-01-30 08:59] VITALS: BP 150/105
[2018-01-30] MEDS: amLODIPine TAB* 5 MG PO SCH (09:00)
[2018-01-30] MEDS: Magnesium Oxide TAB* 400 MG PO SCH (09:00)
[2018-01-30] MEDS: Hydrochlorothiazide TAB* 25 MG PO SCH (09:00)
[2018-01-30] MEDS ORDERED: Atenolol TAB* 50 MG PO SCH (09:00)
[2018-01-30] MEDS: levETIRAcetam TAB* 500 MG PO SCH (09:00)
--- NOTE | 2018-01-30 17:50 | DS ---
CC: Dr. Delaney; Dr. Estevez * DISCHARGE SUMMARY: DATE OF ADMISSION: 01/25/18 DATE OF DISCHARGE: 01/30/18 PRIMARY CARE PROVIDER: Dr. Delaney. DISPOSITION: The patient is being discharged home. DISCHARGE DIAGNOSES: 1. Status epilepticus in the patient with history of seizures in the past. 2. Head trauma with temporal bone fracture, subdural hematoma, right temporal lobe intracranial hematoma and brain contusion as well as subdural hematoma. 3. L1 compression fracture at 25% of questionable activity. 4. Hypomagnesemia. PAST MEDICAL HISTORY: 1. History of seizure disorder. 2. Hypertension. MEDICATIONS AT DISCHARGE: Include: 1. Keppra 1000 mg b.i.d. 2. Atenolol 50 mg daily. 3. Hydrochlorothiazide 25 mg daily. 4. Norvasc 5 mg daily. 5. Magnesium oxide 800 mg daily for a total of 10 days and stop. FOLLOWUP: At discharge, patient recommended to follow up with Dr. Delaney in a scheduled appointment of 02/17/[address] Estevez wishes for the patient to be seen in his office in approximately 4 to 6 weeks after discharge. LABORATORY DATA AND STUDIES PERFORMED DURING THE HOSPITAL STAY: Include: On 01/29/18, sodium of 138, potassium 3.6, chloride 103, carbon dioxide 27, BUN 8, creatinine 0.69. On 01/29/18, white blood cell count of 4.3, hemoglobin of 12.4, hematocrit of 35 , MCV of 99, and platelets of 168. EEG obtained on 01/28/18, impression: "With the patient awake, background cerebral activity consistent with moderate amplitude posterior dominant rhythm, a 9 to 10 Hz rhythm, which attenuates with eye opening and reappears with eye closure. The patient never falls asleep." Lumbar spine CT obtained on 01/28/18, impression: "Less than 25% compression fracture of L1." Thoracic spine CT showed no thoracic spine fracture noted. Head CT obtained on 01/27/18, impression: "Normal CT angiogram of the brain. Traumatic cranial and intracranial findings as described above. The area of vasogenic edema surrounding the posterior temporal lobe, parenchymal hemorrhage is similar in size compared to a noncontrast CT of the brain from January 2014." Portable chest x-ray obtained on admission, on 01/25/18, impression: "Endotracheal tube 2.5 cm above the marsha. Mild bilateral subsegmental atelectasis." Brain CT obtained on 01/25/18, impression: "Small subdural hematoma adjacent to the left frontal lobe. Small area of parenchymal hemorrhage of the posterior left temporal lobe. Normocephalic, suspicious for a left temporal bone skull base fracture." Cervical spine CT, impression: "No evidence of fracture. Moderate cervical spondylosis." Musculofascial CT obtained on 01/25/18, there is pneumocephalus of the left middle cranial fossa, which is likely secondary to "a nondisplaced left temporal bone fracture involving the mastoid air cells. There is associated small amount of fluid within the mastoid air cells with dehiscence of tegmen tympani on the left. There is periorbital soft tissue swelling on the right." CONSULTATIONS DURING THE HOSPITAL STAY: Included: 1. Dr. Dillard from Neurosurgery. 2. Dr. Estevez from Neurology. 3. Dr. Early, the fulfillment coordinator. HOSPITALIZATION COURSE: Donavon Daniel is a 52-year-old male, [employer] art teacher, with history of hypertension and seizure disorder, who had been on Keppra 750 mg b.i.d. and on 01/25/18 while buying something at a store had a seizure, fell, hit his head and presented with head trauma to the emergency room. Initially, fairly lucent, later on became more confused and had several subsequent seizures and it was decided for the patient to be intubated and sedated. Dr. Dillard saw the patient in consultation in regards to his head trauma. The patient was noted to have parenchymal hemorrhage in the temporal lobe as well as contusion on that side and subdural hematoma. He also had temporal bone fracture. L1 compression fracture was not determined if it was acute or not at that point. The patient gradually was able to be extubated. He was placed initially on Keppra and Dilantin. Later on, his dose of Keppra was increased and his Dilantin was discontinued once it became apparent what medications he was taking at home. Throughout his hospital stay, he was very impulsive and Physical Therapy and Occupational Therapy saw the patient for evaluation. Physical therapy discharged the patient a day prior to his official discharge from the hospital. Occupational Therapy due to patient's impulsiveness suggested cognitive evaluation performed by the Speech Therapy. The cognitive evaluation went very well. The patient had no impairment noted. At discharge, the patient is recommended not to drive. He is recommended to follow up with Dr. Estevez and his primary care provider, who is a new primary care provider for him as above mentioned. Please note the patient just moved from [facility] to [facility] in October 2017 and he was not able to establish primary care provider yet, which was performed by our service at discharge. The patient was noted to have some hypomagnesemia, which had needed to be replaced with multiple IV magnesium doses. He is going to be prescribed magnesium supplement at discharge. PHYSICAL EXAMINATION: At the time of discharge, blood pressure of 150/91, heart rate of 95 and regular, respiratory rate 20, oxygen saturation 99% on room air, temperature 98.5. General: This is a very pleasant 52-year-old male who is in no acute distress. Alert, awake, and oriented x3. HEENT: Head: With head trauma noted with ecchymosis overlying the right side of the patient' s orbit, the patient's face. Eyes: Extraocular muscles are intact. Pupils are uneven with the right pupil being slightly larger than the left, both are reactive to light and accommodation. Oropharynx clear. Mucosa moist. Neck: Supple. No JVD. No bruits bilaterally. Cardiovascular: Regular rate and rhythm. No murmur. Respiratory: Clear to auscultation bilaterally. Abdomen: Soft, nontender. Bowel sounds are present in all 4 quadrants. Extremities: There is no edema. Pulses are +2 bilaterally. No clubbing or cyanosis. Skin: On evaluation of the skin, large ecchymotic area overlying the right side of face as well as the right chest and right upper extremity. Psychiatric Evaluation: Oriented x3 with no evidence of anxiety or depression. Please note that this is a short summary of the patient's hospitalization. Please refer to further medical records for details. TIME SPENT: Approximately 50 minutes were spent on the patient's discharge. [id number]/[facility] #: [id number] MTDD
== END 2018-01-30 14:40 | disposition home or self-care (01) | DRG 55 ==
LOC: ED 10:14 → ICU 16:38 → MEDTELE 01-28 15:46
PROVIDERS: ADMIT Internal Medicine Critical Care Medicine; ATTEND Internal Medicine
PROC: 0BH17EZ Insertion of Endotracheal Airway into Trachea, Via Natural or Artificial Opening (ICD-10-PCS; principal; 2018-01-25)
PROC: 5A1935Z Respiratory Ventilation, Less than 24 Consecutive Hours (ICD-10-PCS; 2018-01-25)
PROC: 4A00X4Z Measurement of Central Nervous Electrical Activity, External Approach (ICD-10-PCS; 2018-01-28)
DX: S06.5X0A Traumatic subdural hemorrhage without loss of consciousness, initial encounter (principal); J96.00 Acute respiratory failure, unspecified whether with hypoxia or hypercapnia; S06.369A Traumatic hemorrhage of cerebrum, unspecified, with loss of consciousness of unspecified duration, initial encounter; G93.6 Cerebral edema; E87.1 Hypo-osmolality and hyponatremia; R47.01 Aphasia; M48.56XA Collapsed vertebra, not elsewhere classified, lumbar region, initial encounter for fracture; G40.901 Epilepsy, unspecified, not intractable, with status epilepticus; W18.30XA Fall on same level, unspecified, initial encounter; S02.19XA Other fracture of base of skull, initial encounter for closed fracture; G40.401 Other generalized epilepsy and epileptic syndromes, not intractable, with status epilepticus; I10 Essential (primary) hypertension; S06.2X0A Diffuse traumatic brain injury without loss of consciousness, initial encounter; S05.11XA Contusion of eyeball and orbital tissues, right eye, initial encounter; H57.02 Anisocoria; E83.42 Hypomagnesemia; G93.89 Other specified disorders of brain; M47.812 Spondylosis without myelopathy or radiculopathy, cervical region; I25.2 Old myocardial infarction; Y92.512 Supermarket, store or market as the place of occurrence of the external cause
CPT/HCPCS: 36415; 70450; 70486; 70496; 71045; 72070; 72100; 72125; 72128; 72131; 80048; 80053; 80156; 80164; 80175; 80177; 80184; 80185; 80203; 80307; 80320; 81003; 81015; 83605; 83735; 84100; 84484; 85025; 85027; 85060; 85610; 87086; 87641; 93005; 94002; 94003; 95816; 95822; 99285; A9270-GY; G0480; G8978-GP-CH; G8978-GP-CI; G8979-GP-CH; G8980-GP-CH; G8987-GO-CH; G8988-GO-CH; G8989-GO-CH; J0133; J2060; J2704; J3010; J3411; J3475; Q2009; Q9967

== ENCOUNTER 2018-08-23 08:14 | Emergency (ER) | payer OTHER ==
[2018-08-23] MEDS ORDERED: EPINEPHrine SYR 0.1MG/ML* SYRINGE ONE ×2 (08:16→08:20)
[2018-08-23] MEDS ORDERED: Sodium Bicarbonate 8.4%* 50 ML SYRINGE ONE (08:17)
[2018-08-23] MEDS ORDERED: Calcium CHLORIDE 10% SYRINGE* 1 GM/10 ML ONE (08:18)
[2018-08-23 08:58] VITALS: BP 0/0
--- NOTE | 2018-08-23 09:07 | ED ---
HPI Cardiac - HPI Summary HPI Summary: Patient is a 53 y/o M arriving via [facility] ambulance for cardiac arrest. Patient was reported to be heard snoring in a hallway and found down and unresponsive at [facility] at 0710, EMS was called. ABC alert called at [phone], EMS arrived at 0813, Dr. Jackson in room to evaluate patient immediately upon arrival. EMS reports that patient was given 6 epi, 1 narcan, 1 bicarp, 800cc NS TECHNICIAN'S HELPER. IO placed to RLE. Patient was never shocked as a shockable rhythm was never recorded. CPR was done for 30 minutes, EMS reports that patient was asystole the entire time and no trauma was observed. Accu-check showed BG of 337. Endotracheal tube was attempted twice, combitube was placed. In room, patient was given epi at 0816 and 0820 as well as calcium chloride and sodium bicarbonate. Patient was pronounced at 0822. Afterwards, review of medical records showed PMHx of low magnesium, DVT, seizures. [facility] state that it was reported to them that patient possibly had an alcohol problem. Level 5 caveat, patient unresponsive. - History of Current Complaint Stated Complaint: ABC ALERT Hx Obtained From: EMS, Medical Records Hx From Patient Unobtainable Due To: Other - level 5 caveat, unresponsive Onset/Duration: Started Minutes Ago - found down at 0710, Still Present Timing: Constant, Lasting Minutes - found down at 0710 Initial Severity: Severe Current Severity: Severe Associated Signs and Symptoms: Positive: Other: - cardiac arrest - Additional Pertinent History Primary Care Physician: [id number] - Allergy/Home Medications Allergies/Adverse Reactions: Allergies Allergy/AdvReac Type Severity Reaction Status Date / Time lisinopril Allergy Anaphylatic Verified 01/29/18 16:03 Shock PMH/Surg Hx/FS Hx/Imm Hx Endocrine/Hematology History: Denies: Hx Diabetes Cardiovascular History: Reports: Hx Myocardial Infarction Denies: Hx Hypertension History: Denies: Hx Renal Disease Sensory History: Comment Only: Hx Contacts or Glasses - unable to confirm, Hx Hearing Aid - unable to confirm Opthamlomology History: Comment Only: Hx Contacts or Glasses - unable to confirm Neurological History: Reports: Hx Seizures - Surgical History Surgery Procedure, Year, and Place: Unknown: Patient is a level 5 caveat due to postictal patient Infectious Disease History: Denies: Traveled Outside the [place] in Last 30 Days - Family History Known Family History: Positive: Unknown - Patient is a level 5 caveat - Social History Alcohol Use: unable to confirm Alcohol Amount: unknown Substance Use Type: Reports: None Substance Use Comment - Amount & Last Used: unknown Smoking Status (MU): Unknown if Ever Smoked Review of Systems - ROS Summary Review of Systems Summary: level 5 caveat, patient unresponsive Positive: Other - cardiac arrest All Other Systems Reviewed And Are Negative: No - Comments Additional Review of Systems Comments: level 5 caveat, patient unresponsive Physical Exam - Summary Physical Exam Summary: GENERAL: Patient is a well-developed and nourished male. Patient is in acute respiratory distress. HEAD AND FACE: Normocephalic EYES: pupils unreactive. MOUTH: Patient has combitube in place CHEST: Symmetric, no tenderness at palpation LUNGS: Vented breath sounds CVS: Asystole ABDOMEN: Distended SKIN: Dry and warm Triage Information Reviewed: Yes Vital Signs On Initial Exam: Initial Vitals Temp Pulse Resp BP Pulse Ox 0 F 0 0 0/0 50 08/23/18 08:14 08/23/18 08:14 08/23/18 08:14 08/23/18 08:14 08/23/18 08:14 Vital Signs Reviewed: Yes Completion Of Physical Exam Limited Due To: Level 5 Disposition - Course Course Of Treatment: Patient is a 53 y/o M arriving via [facility] ambulance for cardiac arrest. Patient was reported to be heard snoring in a hallway and found down at [facility] at 0710, EMS was called. ABC alert called at [phone], EMS arrived at 0813, Dr. Jackson in room to evaluate patient immediately upon arrival. EMS reports that patient was given 6 epi, 1 narcan, 1 bicarp, 800cc NS TECHNICIAN'S HELPER. Patient was never shocked as a shockable rhythm was never recorded. CPR was done for 45 minutes, EMS reports that patient was asystole the entire time and no trauma was observed and never got a pulse back. Accu-check showed BG of 337. Endotracheal tube was attempted twice, combitube was placed. Level 5 caveat , patient unresponsive. On physical exam, patient is noted to have unreactive pupils, combitube in place, vented breath sounds, and distended abdomen. Patient is asystole. In room, patient was given epi at 0816 and 0820 as well as calcium chloride and sodium bicarbonate. Patient was pronounced at 0822. Afterwards, review of medical records showed PMHx of low magnesium, DVT, seizures. [facility] state that it was reported to them that patient possibly had an alcohol problem. Numerous calls were placed to patient' s mother after patient's passing; both the number in the demographics and the number listed in pt's personal cell phone were attempted without success. [place] local police, where patient's mother resides, was contacted and attempted to reach her. At 1156, patient's mother called ED. Son's was discussed with her. Mother notes extensive history of cardiac-related deaths on patient's patneral side. Patient was accepted by hemming and tacking machine operator, autopsy will be performed. Dx of cardiac arrest. - Diagnoses Provider Diagnoses: Cardiac arrest During the Visit The Following Alert/Code Occurred: ABC Alert - 0749 - Critical Care Time Critical Care Time: 30-74 min Discharge - Sign-Out/Discharge Documenting (check all that apply): Patient Departure - - Discharge Plan Condition: Disposition: Referrals: Domingo Delaney MD [Primary Care Provider] - - Billing Disposition and Condition Condition: Disposition: - Attestation Statements Document Initiated by Scribe: Yes Documenting Scribe: Lee Walton Provider For Whom Scribe is Documenting (Include Credential): Gaby Jackson MD Scribe Attestation: Lee Torres , scribed for Gaby Jackson MD on 08/23/18 at 1411. Scribe Documentation Reviewed: Yes Provider Attestation: The documentation as recorded by the Lee burch accurately reflects the service I personally performed and the decisions made by , Gaby Jackson MD
== END 2018-08-23 08:22 | disposition expired ==
LOC: ED 08:14
DX: I46.9 Cardiac arrest, cause unspecified (principal)
CPT/HCPCS: 99285; J0171